=== PATIENT | male | born 1975 | race Caucasian/White ===

== ENCOUNTER 2025-09-07 11:43 | Emergency (ER) | payer OTHER, SELFPAY ==
--- NOTE | ~2025-09-07 | XR_ITS ---
Examination: XR chest 1V portable Clinical History: syncope Comparison: 02/14/2012 Technique: Portable AP Findings: Median sternotomy and CABG. Heart size normal. Lungs clear. No acute bony abnormality. IMPRESSION: 1. No acute cardiopulmonary findings given portable technique. Reviewed, dictated and finalized at location R. IONARY STEAM ENGINEER
[2025-09-07 11:50] VITALS: BP 124/74; PULSE 86; RESP 16; TEMP 36.1; O2SAT 99
--- NOTE | 2025-09-07 11:58 | ECG_ITS ---
Test Date: 2025-09-07 11:51:20 Measurements Intervals [place] Rate: 85 P: 39 MT: 172 QRS: 27 QRSD: 90 T: 57 QT: 369 QTc: 440 Interpretive Statements SINUS RHYTHM NONSPECIFIC T-WAVE ABNORMALITY BORDERLINE ECG No previous ECG available for comparison Electronically Signed On 09-07-2025 17:30:36 [employer] PROGRAMMER by Lam Barfield M.D.
--- NOTE | 2025-09-07 12:01 | PC.NURSE ---
Dr. Luan Schulz was spoken with by this RN at [facility]. Per the provider, preprocedure pt received 5 mg dexamethasone, 2 mg of versed, and a little bit of propofol and ketamine. Lidocaine was also used to numb the gums. 20 minutes into the procedure, the pts pulse dropped into the 40's. The provider said that the monitor was reading in the 80's but when he palpated the pulse, it was in the low 40's. After this, the provider gave 200 mcg of glycopyrrolate in small does to see if that would help with the pulse which it did not. Pt received 500 mL normal saline in procedure and another ~[address]
--- NOTE | 2025-09-07 12:15 | ED_ITS ---
HPI - General Adult General Chief complaint: Recheck/Abnormal Lab/Rx Stated complaint: BRADYCARDIA DURING DENTAL PROCEDURE Time Seen by Provider: 09/07/25 11:53 History of Present Illness HPI narrative: 50-year-old male presenting to the emergency department for evaluation for a a syncopal episode while he was getting his teeth extracted. Patient was getting teeth from both upper and lower extracted at a local dentist office when the patient had an episode of bradycardia down to the 40s. Upon arrival to the emergency department patient's heart rate is 86 patient's blood pressure is 124/74 and patient denies any complaints other than dental pain. Related Data Allergies Allergy/AdvReac Type Severity Reaction Status Date / Time Penicillins Allergy Unknown Unknown Verified 09/07/25 11:44 Review of Systems 2 Review of Systems: All systems reviewed & are unremarkable except as noted in HPI and below Exam 2 Narrative: APPEARANCE: Well appearing, no pain, no distress, well-nourished. HEAD: normocephalic, atraumatic. EYES: PERRLA/EOMI, conjunctivae clear. NOSE: Normal no drainage EARS:TMS clear with good light reflex. THROAT: Pharynx clear, no exudate. Mouth: Well clotting dental extractions, no active hemorrhage NECK: Supple. No adenopathy, no masses. RESPIRATORY: Airway patent, respirations nonlabored. Clear to auscultation bilaterally, no rales, rhonchi, wheezing. CARDIOVASCULAR: Regular rate and rhythm without murmurs rubs or gallops. ABDOMINAL: Soft, nontender, nondistended, normal bowel sounds MUSCULOSKELETAL: Moves all extremities. Strength/ROM intact, No edema, No calf tenderness. NEURO: Alert. Cranial nerves II through XII intact. Good gait. Good coordination SKIN: Warm, dry. Normal Color Course Vital Signs Vital signs: Vital Signs Temperature 97 F L 09/07/25 11:50 Pulse Rate 86 09/07/25 11:50 Respiratory Rate 16 09/07/25 11:50 Blood Pressure 124/74 09/07/25 11:50 Pulse Oximetry 99 09/07/25 11:50 Oxygen Delivery Room Air 09/07/25 11:50 Temperature 97 F L 09/07/25 11:50 Pulse Rate 82 09/07/25 13:54 Respiratory Rate 14 09/07/25 13:54 Blood Pressure 133/74 09/07/25 13:54 Pulse Oximetry 95 09/07/25 13:54 Oxygen Delivery Room Air 09/07/25 11:50 Medical Decision Making MDM Narrative Medical decision making narrative: 50-year-old male presents emergency department for evaluation for a episode of bradycardia. Patient is currently afebrile with no leukocytosis hemoglobin of 14.4. INR is 1.1. Normal kidney function. Chest x-ray shows no acute cardiopulmonary abnormality. EKG shows normal sinus rhythm. Patient was well- appearing at time of re-evaluation. Patient was able to ambulate without issue. Patient family updated the results of the workup and patient was strongly encouraged to continue have close follow-up with his dental surgeon. Patient and family are also educated reasons to return to the emergency department. All questions concerns were addressed. Differential Diagnosis Differential Diagnosis: Vasovagal episode, bradycardia, near syncope, hemorrhage, cardiac syncope Vital Signs Vital Signs: Vital Signs Temperature 97 F L 09/07/25 11:50 Pulse Rate 86 09/07/25 11:50 Respiratory Rate 16 09/07/25 11:50 Blood Pressure 124/74 09/07/25 11:50 Pulse Oximetry 99 09/07/25 11:50 Oxygen Delivery Room Air 09/07/25 11:50 Temperature 97 F L 09/07/25 11:50 Pulse Rate 82 09/07/25 13:54 Respiratory Rate 14 09/07/25 13:54 Blood Pressure 133/74 09/07/25 13:54 Pulse Oximetry 95 09/07/25 13:54 Oxygen Delivery Room Air 09/07/25 11:50 Lab Data Lab results reviewed: Yes I reviewed the patient's lab results. 09/07/25 12:27 09/07/25 12:27 Labs: Lab Results 09/07/25 Range/Units 12:27 WBC 8.0 (4.5-10.0) K/mm3 RBC 5.50 (4.6-6.20) M/mm3 Hgb 14.4 (14.0-18.0) g/dL Hct 45.8 (42.0-52.0) % MCV 83.3 (80-100) fl MCH 26.2 (26-34) pg MCHC 31.4 L (32-36) g/dl RDW 15.5 H (11.5-14.5) % Plt Count 255 (150-375) k/mm3 MPV 10.2 (7.4-10.4) fl Immature Gran % (Auto) 0.4 (0-0.5) % Neut % (Auto) 91.2 H (45.5-73.1) % Lymph % (Auto) 5.8 L (18.3-44.2) % [place] % (Auto) 1.9 L (2.6-8.5) % Eos % (Auto) 0.4 (0-4.4) % Baso % (Auto) 0.3 (0.2-1.2) % Lymph # (Auto) 0.46 L (0.9-3.2) K/mm3 [place] # (Auto) 0.2 (0.1-0.6) K/mm3 Eos # (Auto) 0.0 (0-0.3) K/mm3 Baso # (Auto) 0.0 (0.0-0.1) K/mm3 Abs Immat Gran (auto) 0.03 (0.00-0.031) K/mm3 Absolute Neuts (auto) 7.3 H (1.3-6.7) K/mm3 Absolute Nucleated RBC 0.000 (0.0-0.012) K/mm3 Nucleated RBC % 0.0 (0.0-0.2) % PT 14.3 (11.1-14.7) Seconds INR 1.1 APTT 31.7 (22.3-36.8) Seconds Sodium 138 (137-145) mmol/L Potassium 4.3 (3.4-5.0) mmol/L Chloride 106 (98-107) mmol/L Carbon Dioxide 22 (22-30) mmol/L Anion Gap 10 (4-12) mmol/L BUN 22 H (9-20) mg/dL Creatinine 0.66 L (0.7-1.3) mg/dL Estim Creat Clear Calc Not Reportable Estimated GFR > 60 (59 - ) Glucose 105 (65-110) mg/dL Calcium 8.7 (8.4-10.2) mg/dL Magnesium 2.3 (1.6-2.3) mg/dL Total Bilirubin 0.7 (0.2-1.3) mg/dL AST 28 (17-59) U/L ALT 21 (6-50) U/L Alkaline Phosphatase 96 (38-126) U/L Total Protein 7.1 (6.3-8.2) g/dL Albumin 4.5 (3.5-5.1) g/dL TSH (Reflex) 0.904 (0.465-4.68) uIU/mL Imaging Data Radiologist's impression: Impressions Chest X-Ray 09/07/25 12:36 IMPRESSION: 1. No acute cardiopulmonary findings given portable technique. Discharge Plan Discharge Clinical Impression: Bradycardia Patient Disposition: Home Condition: Stable Instructions: Antibiotic Form Additional Instructions: Have close follow-up with your or oral surgeon. Have close follow-up with your primary care physician. If you have any worsening symptoms please call or return to the emergency department. Patient Language: [place] Follow-up/Referrals: UNKNOWN,DOCTOR [Non-Staff]
[2025-09-07 12:40] LABS: Hematocrit 45.8 % (42.0-52.0); Hemoglobin 14.4 g/dL (14.0-18.0); Immature Granulocyte Percent A 0.4 % (0-0.5); Lymphocytes Absolute Auto 0.46 K/mm3 (0.9-3.2); Mean Corpuscular HGB Conc 31.4 g/dl (32-36); Mean Corpuscular Hemoglobin 26.2 pg (26-34); Mean Corpuscular Volume 83.3 fl (80-100); Nucleated Red Blood Cells Absolute Auto 0.000 K/mm3 (0.0-0.012); Nucleated Red Blood Cells Perc 0.0 % (0.0-0.2); Platelet Count Result 255 k/mm3 (150-375); Red Blood Count 5.50 M/mm3 (4.6-6.20); White Blood Count 8.0 K/mm3 (4.5-10.0)
[2025-09-07 12:54] LABS: INR 1.1; Partial Thromboplastin Time 31.7 Seconds (22.3-36.8); Prothrombin Time 14.3 Seconds (11.1-14.7)
[2025-09-07 12:58] VITALS: BP 122/72; PULSE 80; RESP 14; O2SAT 96
[2025-09-07 12:59] LABS: Alanine Aminotransferase 21 U/L (6-50); Albumin Level 4.5 g/dL (3.5-5.1); Alkaline Phosphatase 96 U/L (38-126); Anion Gap 10 mmol/L (4-12); Aspartate Amino Transferase 28 U/L (17-59); Bilirubin,Total 0.7 mg/dL (0.2-1.3); Blood Urea Nitrogen 22 mg/dL (9-20); Calcium 8.7 mg/dL (8.4-10.2); Carbon Dioxide 22 mmol/L (22-30); Chloride 106 mmol/L (98-107); Estimated Glomerular Filt Rate > 60; Glucose 105 mg/dL (65-110); Magnesium 2.3 mg/dL (1.6-2.3); Potassium 4.3 mmol/L (3.4-5.0); Sodium 138 mmol/L (137-145); Total Protein 7.1 g/dL (6.3-8.2)
[2025-09-07 13:23] LABS: Thyroid Stimulating Hormone Reflex 0.904 uIU/mL (0.465-4.68)
--- OUTSIDE RECORDS SUMMARY | 2025-09-07 13:29 | XMS_ITS | Clinical Summary ---
Author Organization [facility] Clinical [facility] Address [facility] [place] [address] Care Team Providers Care Crossbar Switch Adjuster Name Role Phone Rubens Zuniga MD Unavailable [phone] Bassem Pena MD Unavailable Sarah Junior INTERNATIONAL MARKETING MANAGER Unavailable Unavailable Carlos Pereira MD Unavailable Corina Pulido NP Unavailable [phone] Leelee Schaefer NP Primary Care Provider Allergies Active Allergy Reactions Criticality Noted Date Comments Penicillins Rash Medium 03/28/2018 As a child Has had cefazolin safely 02/2025 Medications senna-docusate (PERICOLACE) 8.6-50 mgIndications:cons tipation Take 2 tablets by mouth 2 (two) times a day 120 tablet 5 Active nicotine (NICODERM CQ) 14 mgIndications:Smok ing Cessation Place 1 patch on the skin daily for 24 hours 28 patch 1 5 Active ergocalciferol (VITAMIN D) 50,000 unit capsuleIndications :Vitamin D Deficiency Take 1 capsule (50,000 Units total) by mouth once a week 4 capsule 11 5 026 Active sacubitriL-valsart an (ENTRESTO) 24-26 mg tabletIndications: chronic heart failure Take 1 tablet by mouth 2 (two) times a day 60 tablet 5 Active ezetimibe (ZETIA) 10 mg tabletIndications: hyperlipidemia Take 1 tablet (10 mg total) by mouth daily 30 tablet 11 5 026 Active blood-glucose sensor (FreeStyle Honey 3 Plus Sensor) deviceIndications: Type 2 diabetes mellitus with hyperglycemia, with long-term current use of insulin (HCC) Change sensor every 15 days Dx: E11.65 6 each 3 5 Active insulin glargine 100 unit/mL (3 mL) pen for injectionIndicatio ns:Diabetes Mellitus Inject 14 Units under the skin nightly 15 mL 2 5 Active pen needle, diabetic (BD Ultra-Fine [place] Pen Needle) 32 gauge x 32 needle Use to inject 3-4x/day 300 each 3 5 Active atorvastatin (LIPITOR) 40 mg tabletIndications: coronary artery disease Take 1 tablet (40 mg total) by mouth nightly 90 tablet 3 5 Active amLODIPine (NORVASC) 5 mg tabletIndications: Primary hypertension Take 1 tablet (5 mg total) by mouth daily 90 tablet 3 5 Active gabapentin (NEURONTIN) 100 mg capsuleIndications :Other polyneuropathy Take 1 capsule (100 mg total) by mouth nightly 30 capsule 11 5 Active magnesium oxide (MAG-OX) 400 mg (241.3 mg elemental magnesium) tablet Take 1 tablet (400 mg total) by mouth 2 (two) times a day 5 Active metoprolol XL (TOPROL-XL) 25 mg extended release tablet Take 1 tablet (25 mg total) by mouth daily 5 Active tirzepatide (Mounjaro) 5 mg/0.5 mL pen injector injection Inject 0.5 mL (5 mg total) under the skin every 7 days 2 mL 5 5 Active empagliflozin (JARDIANCE) 25 mg tablet Take 1 tablet (25 mg total) by mouth daily 90 tablet [address] (PROTONIX) 40 mg EC tabletIndications: GI Bleed Take 1 tablet (40 mg total) by mouth 2 (two) times a day 180 tablet 3 5 Active tirzepatide (MOUNJARO) 7.5 mg/0.5 mL pen injector injectionIndicatio ns:Type 2 diabetes mellitus with hyperglycemia, with long-term current use of insulin (HCC),Class 1 obesity with serious comorbidity and body mass index (BMI) of 32.0 to 32.9 in adult, unspecified obesity type Inject 0.5 mL (7.5 mg total) under the skin every 7 days 2 mL 2 5 Active buPROPion SR (ZYBAN) 150 mg 12 hr tabletIndications: Cigarette smoker motivated to quit Take 1 tablet (150 mg total) by mouth 2 (two) times a day 60 tablet 3 5 025 Discontin ued(Thera py completed ) docusate sodium (COLACE) 100 mg capsuleIndications :constipation Take 1 capsule (100 mg total) by mouth 2 (two) times a day 60 capsule 11 5 025 Discontin ued(Thera py completed ) sod picosulf-mag ox-citric ac (Clenpiq) 10 mg-3.5 gram- 12 gram/175 mL solution Take as Directed 350 mL 5 025 Discontin ued(Thera py completed ) Active Problems Problem Noted Date Diagnosed Date Esophagitis 08/08/2025 Gastritis without bleeding 08/03/2025 Drug-induced constipation 05/03/2025 Assessment & Plan (09/03/2025 4:19 PM HEAD UP OPERATOR HELPER): Intermittent constipation despite Colace and Senna. Improvement with Mounjaro noted. - Discontinued Colace and Senna. - Initiated Florastor, two gummies in the morning and two in the evening. - Monitor bowel movement frequency and adjust Florastor dosage as needed. Assessment & Plan (05/03/2025 4:41 PM CDT): Constipation Constipation likely due to Ozempic use. Metamucil may not be beneficial. Emphasized physical activity and hydration. - Encourage increased physical activity and hydration. - Advise focus on green leafy vegetables. - Discontinue Metamucil. Vapes non-nicotine containing substance 05/03/20 25 Overview (09/03/2025): Stopped smoking when children were young Smoking Cessation Attempting to quit smoking with nicotine patch and gum. Bupropion prescribed but not started. - Resend bupropion prescription to pharmacy. Assessment & Plan (09/03/2025 4:20 PM HEAD UP OPERATOR HELPER): Nicotine dependence in remission. Reduced nicotine product consumption. - Discontinued Wellbutrin. - Continue nicotine lozenges and zero nicotine vape. - Encouraged reduction of nicotine use with the goal of cessation. Gastrointestinal hemorrhage with melena 03/20/20 Assessment & Plan (05/03/2025 2:15 PM CDT): No current symptoms Bleeding duodenal ulcer 03/16/2025 Assessment & Plan (05/03/2025 4:42 PM CDT): Peptic Ulcer Disease Bleeding ulcer likely due to NSAID use and stress. Discussed risks of NSAID use. - Consider stress management techniques. -Pantoprazole 40 mg Type 2 diabetes mellitus wit h hyperglycemia, with long-term current use of insulin 03/10/2025 Assessment & Plan (09/03/2025 4:18 PM HEAD UP OPERATOR HELPER): Managed with Mounjaro. Cravings suggest dose adjustment needed. Pipe Insulator Helper involved. - Increased Mounjaro dose after current supply is finished. - Informed branch maker of dose increase. - Reports significant constipation on Ozempic and taking 3 senna into docusate per day. Patient was changed to Mounjaro 5 mg weekly. - Continue Jardiance 125 mg, Glargine 10 units (fasting blood sugars less than 110 Lantus will be discontinued), and Mounjaro 5 mg/0.5 mL Lab Results Component Value Date HGBA1C 6.3 (A) 07/28/2025 HGBA1C 6.2 (H) 06/11/2025 HGBA1C 4.4 04/01/2025 HGBA1C 5.2 03/23/2025 HGBA1C 9.3 (H) 02/17/2025 Assessment & Plan (07/28/2025 11:26 AM CDT): Chronic problem, at goal. He is noting though significant constipation on Ozempic, taking 3 senna and 2 docusate/day and sometimes still difficult to have a BM. Will see if Mounjaro is better tolerated, change to 5 mg weekly. Increase Jardiance to 25 mg daily. Lower Lantus to 10 units daily. If fasting sugars persist <110 then can try stopping it altogether and let us know if any issues. We can consider metformin if needed in the future (tolerated fine before his GI bleed), but he is struggling with polypharmacy and medication confusion so will try to limit medications at this time. He'll also discuss with his GI and PCP. Try Mounjaro [address] of Ozempic to see if helps with constipation side effect. Increase Jardiance to 25 mg. Lower Lantus to 10 units. If fasting sugars stay low (<110) can leave this off altogether. Let me know how this works for you. Assessment & Plan (05/03/2025 4:41 PM CDT): Type 2 Diabetes Mellitus Blood glucose well-controlled with Ozempic and Lantus. Discussed Ozempic's potential to cause constipation. - Continue Ozempic and Lantus as prescribed. - Encourage regular physical activity and a balanced diet. Lab Results Component Value Date HGBA1C 4.4 04/01/2025 HGBA1C 5.2 03/23/2025 HGBA1C 9.3 (H) 02/17/2025 HGBA1C 9.8 (H) 07/23/2020 HGBA1C 7.0 (H) 09/24/2018 Jardiance 10 mg, Glargine 14 units, ozempic 0.5 mg, taper off lispro, metformin discontinued Assessment & Plan (03/23/2025 4:20 PM CDT): Chronic problem. A1c is spurious due to recent GI bleed requiring multiple units of pRBC. We discussed options including adding back metformin and starting a GLP1a like Ozempic that is also cardioprotective. However he was just discharged yesterday for the GI bleed and is still having some nausea, loose stools, etc. His sugars are reasonably stable right now on his current regimen with Jardiance and insulin so will continue same at this time. He can let us know how he's doing in about a month and we'll go from there. 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 He feels Dexcom is not always accurate and has multiple technical issues. Will try Honey, rx sent. Chronic heart failure 03/10/2025 Assessment & Plan (09/03/2025 6:56 AM HEAD UP OPERATOR HELPER): Asymptomatic, chronic condition. - Continue Entresto 24/26 mg Assessment & Plan (05/03/2025 2:14 PM CDT): Entresto 24/26 mg Bandemia 03/10/2025 Anemia, unspecified type 03/09/2025 Assessment & Plan (05/03/2025 2:11 PM CDT): Lab Results Component Value Date WBC 6.98 04/25/2025 HGB 13.6 04/25/2025 HCT 44.8 04/25/2025 MCV 89.2 04/25/2025 LABPLAT 289 04/25/2025 S/P CABG x 4 03/09/2025 Melena 03/09/2025 Pneumothorax 02/24/2025 Coronary artery disease invo lving coronary bypass graft of [place] heart with angina pectoris 02/19/2025 Assessment & Plan (05/03/2025 2:11 PM CDT): Entresto 24/26 mg Chest pain 02/17/2025 Hypertension 03/28/2018 Assessment & Plan (09/03/2025 4:20 PM HEAD UP OPERATOR HELPER): Well-controlled with amlodipine. - Continue current antihypertensive regimen with amlodipine. -Continue amlodipine 5 mg. BP Readings from Last 3 Encounters: 08/03/25 120/81 07/28/25 122/82 06/29/25 122/76 Assessment & Plan (07/28/2025 11:23 AM CDT): Chronic problem, Controlled on Entresto, amlodipine. No changes. Assessment & Plan (05/03/2025 4:42 PM CDT): Hypertension Blood pressure trending upward post-hospitalization. Amlodipine to be restarted, losartan held due to potential interaction with Entresto. - Restart amlodipine. - Hold off on losartan due to potential interactions with Entresto. - Monitor blood pressure regularly. BP Readings from Last 3 Encounters: 05/03/25 136/91 04/25/25 130/77 04/22/25 138/81 Restarted amlodipine 5 mg Assessment & Plan (03/23/2025 3:28 PM CDT): Chronic problem, Controlled on carvedilol, furosemide, spironolactone. No changes. Nephrolithiasis 03/28/2018 Class 1 obesity with serious comorbidity and body mass index (BMI) of 32.0 to 32.9 in adult 03/28/2018 Assessment & Plan (09/03/2025 4:19 PM HEAD UP OPERATOR HELPER): Management includes Mounjaro and physical activity. Goal weight 175 pounds. - Increased Mounjaro dose to aid in weight loss. - Continue regular physical activity, aiming for 150 minutes per week. - Monitor weight and adjust lifestyle interventions as needed. Wt Readings from Last 3 Encounters: 09/03/25 94.3 kg (208 lb) 08/03/25 90.7 kg (200 lb) 07/28/25 94.7 kg (208 lb 12.8 oz) BMI Follow-up includes: education provided. Assessment & Plan (05/03/2025 2:05 PM CDT): Wt Readings from Last 3 Encounters: 05/03/25 99.6 kg (219 lb 9.6 oz) 04/25/25 97.5 kg (215 lb) 04/22/25 99.8 kg (220 lb) BMI Follow-up includes: education provided. Followed by collar tacker Peripheral neuropathy 03/28/2018 Assessment & Plan (05/03/2025 4:41 PM CDT): Diabetic Neuropathy Intermittent numbness and tingling likely due to diabetic neuropathy. Gabapentin considered for symptom management. - Start gabapentin 100 mg at bedtime. - Monitor for side effects such as drowsiness and adjust dosage as needed. -Feet more than hands Hyperlipidemia 11/27/2017 Assessment & Plan (09/03/2025 4:20 PM HEAD UP OPERATOR HELPER): Managed with atorvastatin. - Continue atorvastatin as prescribed. Assessment & Plan (07/28/2025 11:24 AM CDT): Chronic problem. On statin therapy, no changes. Assessment & Plan (05/03/2025 4:42 PM CDT): Hyperlipidemia On atorvastatin 40 mg for management. Prescription refill issue unresolved. [place]-3 supplementation deferred. - Order cholesterol panel. Assessment & Plan (03/23/2025 3:35 PM CDT): Chronic problem. On statin therapy, no changes. Zetia was added in recent hospital stay. Resolved Problems Problem Noted Date Diagnosed Date Resolved Date Screening for colon cancer 03/16/2025 0 05/03/2025 Screening for colon cancer 03/16/2025 1 11/03/2024 Lipid disorder 03/28/2018 03/16/2025 Lower back pain 03/28/2018 03/16/2025 Backache 11/27/2017 03/16/2025 Overweight 11/27/2017 03/16/2025 Encounters Date Type Department Care Team Description 09/03/20 3:00 PM HEAD UP OPERATOR HELPER Office Visit [facility] [address] [place] [address] Leelee Schaefer NP Situational depression (Primary Dx); Primary hypertension; Type 2 diabetes mellitus with hyperglycemia, with long-term current use of insulin (HCC); Mixed hyperlipidemia; Chronic heart failure, unspecified heart failure type (HCC); Vapes non-nicotine containing substance; Immunization due; Drug-induced constipation; Class 1 obesity with serious comorbidity and body mass index (BMI) of 32.0 to 32.9 in adult, unspecified obesity type 08/08/20 25 Results Follow-Up [facility] at [address] [place] [address] Shila Metzger MD Surgical pathology 08/03/20 9:03 AM CDT Anesthesia Event GI Lab [address] [place] [address] Emily Orozco MD PhD Tere Lazar MD PhD 08/03/20 9:00 AM CDT - 08/03/20 9:30 AM CDT Surgery GI Lab [address] [place] [address] Shila Metzger MD ESOPHAGOGASTRODUODENOSCOPY BIOPSY 08/03/20 7:31 AM CDT - 08/03/20 10:53 AM CDT Hospital Encounter GI Lab [address] [place] [address] Shila Metzger MD Abiodun, Olufemi Joseph, MD Screening for colon cancer; Bleeding duodenal ulcer Discharge Disposition: Discharge to home or self care 07/28/20 9:15 AM CDT Office Visit [facility] [address] [address] Ailyn Graham PA Type 2 diabetes mellitus with hyperglycemia, with long-term current use of insulin (HCC) (Primary Dx); Primary hypertension; Mixed hyperlipidemia 07/26/20 Telephone [facility] at [address] [address] Shila Metzger MD EGD 07/26/20 Telephone [facility] at [address] [address] Shila Metzger MD 07/23/20 1:00 PM CDT Office Visit [address] [id number] Postsurgical aortocoronary bypass status (Primary Dx) 07/21/20 1:00 PM CDT Office Visit [address] [phone] Status post coronary artery bypass graft (Primary Dx) 07/19/20 1:00 PM CDT Office Visit [facility] [address] [place] [address] Postsurgical aortocoronary bypass status (Primary Dx) 07/16/20 1:00 PM CDT Office Visit [address] [address] S/P CABG (coronary artery bypass graft) (Primary Dx) 07/14/20 1:00 PM CDT Office Visit [address] [address] Postsurgical aortocoronary bypass status (Primary Dx) 07/12/20 1:00 PM CDT Office Visit [address] [address] S/P CABG (coronary artery bypass graft) (Primary Dx) 07/09/20 1:00 PM CDT Office Visit [address] [address] Postsurgical aortocoronary bypass status (Primary Dx) 07/07/20 1:00 PM CDT Office Visit [address] [address] Postsurgical aortocoronary bypass status (Primary Dx) 07/05/20 1:00 PM CDT Office Visit [address] [address] Postsurgical aortocoronary bypass status (Primary Dx) 07/02/20 1:00 PM CDT Office Visit [address] [address] Postsurgical aortocoronary bypass status (Primary Dx) 06/30/20 1:00 PM CDT Office Visit [address] [address] Postsurgical aortocoronary bypass status (Primary Dx) 06/30/20 Telephone [facility] at [address] [place] [address] Shila Metzger MD 06/29/20 11:30 AM CDT Office Visit [facility] [address] [place] [address] [address] [place] [address] Corina Pulido, ALFREDO S/P CABG x 4 (Primary Dx) 06/28/20 1:00 PM CDT Office Visit Cardiac [address] [address] Postsurgical aortocoronary bypass status (Primary Dx) 06/25/20 1:00 PM CDT Office Visit Cardiac [address] [address] Postsurgical aortocoronary bypass status (Primary Dx) 06/23/20 1:00 PM CDT Office Visit [address] [address] Postsurgical aortocoronary bypass status (Primary Dx) 06/21/20 1:00 PM CDT Office Visit [address] [address] Postsurgical aortocoronary bypass status (Primary Dx) 06/18/20 1:00 PM CDT Office Visit [address] [address] Postsurgical aortocoronary bypass status (Primary Dx) 06/16/20 1:00 PM CDT Office Visit [address] [address] Postsurgical aortocoronary bypass status (Primary Dx) 06/11/20 1:00 PM CDT Office Visit [address] [address] Postsurgical aortocoronary bypass status (Primary Dx) 06/11/20 12:00 PM CDT Lab [address] [address] 06/09/20 1:00 PM CDT Office Visit [address] [address] S/P CABG (coronary artery bypass graft) (Primary Dx) 06/07/20 1:00 PM CDT Office Visit [address] [address] Postsurgical aortocoronary bypass status (Primary Dx) from Last 3 Months Immunizations Immunization Administration Dates Next Due Hep B Vaccine 09/03/2025,05/05/2025 Influenza, Unspecified 09/03/2025(Deferred: Ankita ent Refused) Surgical History Surgery Date Site/Laterality Comments CARDIAC CATHETERIZATION 02/18/2025 N/A Procedure: LEFT HEART CATHETERIZATION WITH CORONARY ANGIOGRAPHY AND WITH OR WITHOUT LEFT VENTRICULOGRAM 43014; Surgeon: Bassem Pena MD; Location: [facility]AC [facility]; Service: Cardiovascular; Laterality: N/A; Medical devices from this surgery are in the Medical Devices section. CORONARY ARTERY BYPASS GRAFT UPPER GASTROINTESTINAL ENDOSCOPY 03/10/2025 ESOPHAGOGASTRODUODENOSCOPY 03/19/2025 Medical History Medical History Date Comments Hypertension Coronary artery disease Hyperlipidemia Type 2 diabetes mellitus Depression Anxiety Hemorrhoids GERD (gastroesophageal reflux disease) Duodenal ulcer Hiatal hernia First degree heart block Urolithiasis CHF (congestive heart failure) (HCC) Anemia Melena Muscle spasm neck and back Myocardial infarction (HCC) History of transfusion Family History Medical History Relation Name Comments Diabetes Father Family history of diabetes mellitus - (Added by TW Conv) Hypertension Father Family history of hypertension - (Added by TW Conv) Pancreatic cancer Father Family his tory of pancreatic cancer - (Added by TW Conv) Diabetes Mother Family history of diabetes mellitus - (Added by TW Conv) Hypertension Mother Family history of hypertension - (Added by TW Conv) Sleep apnea Mother Obstructive sle ep apnea, adult - (Added by TW Conv) Relation Name Status Comments Father Mother Social History Tobacco Use Types Packs/Day Years Used Date Smoking Tobacco: Every Day Vaping Smokeless Tobacco: Never Tobacco Cessation:Ready to Q uit: Not Asked; Counseling Given: Not Answered Alcohol Use Standard Drinks/Week Comments Yes 1 (1 standard drink = 0.6 oz pur e alcohol) OASIS D0700: Social Isolation Answer Da te Recorded Frequency of experiencing loneliness or isolatio n Sometimes 03/31/2025 OASIS A1250: Transportation Answer Date Recorded Lack of Transportation (Medical) No 03/31/2025 Lack of Transportation (Non-Medical) No 03/31/2025 Patient Unable or Declines to Respond No 03/31/2025 OASIS B1300: Health Literacy Answer [place] e Recorded Frequency of needing help to read materials from doctor or pharmacy Never 03/31/2025 AHC Utilities Answer Date Recorded In the past 12 months has th e electric, gas, oil, or water company threatened to shut off services in your home? No 03/15/2025 Social Connection and Isolation Panel Answer Date Recorded In a typical week, how many times do you talk on the phone with family, friends, or neighbors? More than three times a week 03/15/2025 How often do you get togethe r with friends or relatives? Once a week 03/15/2025 How often do you attend chur ch or religion services? Never 03/15/2025 Do you belong to any clubs o r organizations such as quaker groups, unions, fraternal or athletic groups, or school groups? No 03/15/2025 How often do you attend meet ings of the clubs or organizations you belong to? Never 03/15/2025 Are you , , di vorced, , never , or living with a partner? Never 03/15/2025 Overall Financial Resource Strain (CARDIA) Answe r Date Recorded How hard is it for you to pa y for the very basics like food, housing, medical care, and heating? Not hard at all 03/15/2025 PHQ-2 Answer Date Recorded PHQ-2 Total Score (If total score is 3 or more points, staff should administer the PHQ-9) 0 09/03/2025 Hunger Vital Sign Answer Date Recorded Within the past 12 months, y ou worried that your food would run out before you got the money to buy more. Never true 03/15/20 25 Within the past 12 months, t he food you bought just didn't last and you didn't have money to get more. Never true 03/15/2025 PRAPARE - Transportation Answer Date Re corded In the past 12 months, has l ack of transportation kept you from medical appointments or from getting medications? No 11/2024 In the past 12 months, has l ack of transportation kept you from meetings, work, or from getting things needed for daily living? No 03/15/2025 PHQ-9 Answer Date Recorded PHQ-9 Total Score 8 05/03/2025 Housing Stability Vital Sign Answer Le[place] e Recorded In the last 12 months, was t here a time when you were not able to pay the mortgage or rent on time? No 03/15/2025 In the past 12 months, how m any times have you moved where you were living? 0 03/15/2025 At any time in the past [address] [facility], were you homeless or living in a care home (including now)? No 03/15/2025 AUDIT-C Answer Date Recorded Q1: How often do you have a drink containing alc ohol? 2-4 times a month 08/03/2025 Q2: How many drinks containi ng alcohol do you have on a typical day when you are drinking? 1 or 2 08/03/2025 Q3: How often do you have si x or more drinks on one occasion? Less than monthly 08/03/2025 Personal Safety Answer Date Recorded Have you ever been in or are you currently in a harmful physical or emotional relationship or is someone making you feel afraid or unsafe? Denies 08/03/2025 Sex and Gender Information Value Date Recorded Sex Assigned at Not on file Legal Sex Male 12:15 AM HEAD UP OPERATOR HELPER Gender Identity Not on file Sexual Orientation Not on file Last Filed Vital Signs Vital Sign Reading Time Taken Comments Blood Pressure 117/78 09/03/2025 3:02 PM HEAD UP OPERATOR HELPER Pulse 64 09/03/2025 3:02 PM HEAD UP OPERATOR HELPER Temperature 36.8 C (98.3 F) 08/03/2025 9:40 AM CDT Respiratory Rate 17 09/03/2025 3:02 PM HEAD UP OPERATOR HELPER Oxygen Saturation 98% 08/03/2025 10:10 AM CDT Inhaled Oxygen Concentration - - Weight 94.3 kg (208 lb) 09/03/2025 3:02 PM HEAD UP OPERATOR HELPER Height 172.7 cm (5' 7.99) 09/03/2025 3:02 PM CS T Body Mass Index 31.63 09/03/2025 3:02 PM HEAD UP OPERATOR HELPER Plan of Treatment Health Maintenance Due Date Last Done Comments DTaP/Tdap/Td Vaccine (1 - Tdap) 1984 Pneumococcal vaccine <65 (1 of 2 - PCV) 1992 Zoster Vaccine (1 of 2) 2023 Hemoglobin A1C 01/26/2026 07/28/2025, 08/2 06/2025, 04/01/2025, Additional history exists Foot Exam 03/23/2026 03/23/2025 Dilated Eye Exam 04/02/2026 04/02/2025 Influenza Vaccine (#1) 2026 Postp oned from 06/14/2025 (Patient declined, but will receive in the future) Albumin Creatinine Ratio, Urine 05/03/2026 05/03/2025, 03/21/2025 Regular Well Visit/Exam 18-64 05/03/2026 05/03/2025, 07/18/2020 Lipid Panel 06/11/2026 06/11/2025, 04/14, 04/01/2025, Additional history exists eGFR 06/11/2026 06/11/2025, 0710/2024, 04/25/2025, Additional history exists Covid-19 Vaccine ( season) 2026 03/26/2021, 03/05/2021 Postponed from 06/14/2025 (Patient declined, but will receive in the future) Depression Screening 09/03/2026 09/03/2025, 05/03/2025, 05/03/2025, Additional history exists Prostate Cancer Screening-PSA 05/03/2027 05/03/2025 Colon Cancer Screening-Colonoscopy 03/22/2035 03/22/2025 Hepatitis C Screening Completed 05/03/2025 Hepatitis B Screening Completed 09/03/2025 , 05/05/2025, 05/03/2025 Medical Devices Implanted Type Area Data Integration Architect Device Identifier Shelf Expiration Date Model / Serial / Lot [employer] Graft Straight Thoracic Collagen Coated Double [employer] [place] [id number] Woven [employer] [id number] - [id number] - [id number] Implanted:Qty: 1 on 02/23/2025 by Kel Reyes MD at Graft N/A: Aorta [employer] [id number] 04/12/2029 [id number] / [id number] [employer] Plate Bone Low Profile 4 Hole Box Sternum Ti 115.103.04 - [id number] Implanted:Qty: 1 on 02/23/2025 by Kel Reyes MD at Plate N/A: Sternum [employer] 115.103.0 4 / / [employer] Plate Bone Low Profile 6 Hole H Shape Sternum Ti 115.102.06 - [id number] Implanted:Qty: 1 on 02/23/2025 by Kel Reyes MD at Plate N/A: Sternum [employer] 115.102.0 6 / / [employer] Plate Bone Low Profile 6 Hole O Shape Sternum Ti 115.104.06 - [id number] Implanted:Qty: 1 on 02/23/2025 by Kel Reyes MD at Plate N/A: Sternum [employer] 115.104.0 6 / / [employer] Screw Bone Slf Drl Full Thread Locking 3.5x18mm Ti 100.035.18 - [id number] Implanted:Qty: 16 on 02/23/2025 by Kel Reyes MD at Screw N/A: Sternum [employer] 100.035.1 8 / / [employer] Angio-Seal Vip 6fr Closere Device [id number] - [id number] Implanted:Qty: 1 on 02/18/2025 by [id number] / / [employer] Kit Ventricular Assist Device Pump Percutaneous Impella 5.5 Smartassist [id number] - [id number] - [id number] Implanted:Qty: 1 on 02/23/2025 by Kel Reyes MD at N/A: Heart [employer] [id number] 06/13/2026 [id number] / 00 / [id number] Procedures Procedure Name Priority Date/Time Associated Diagnosis Comments SURGICAL PATHOLOGY Routine 08/03/2025 1:21 PM CDT Screening for colon cancer Bleeding duodenal ulcer ESOPHAGOGASTRODUODENOSCOPY BIOPSY 08/03/2025 9:04 AM CDT Screening for colon cancer Bleeding duodenal ulcer EGD 08/03/2025 9:00 AM CDT POCT GLUCOSE DEVICE Routine 08/03/2025 8:17 AM CDT POCT GLUCOSE Routine 07/28/2025 9:10 AM CDT Type 2 diabetes mellitus with hyperglycemia, with long-term current use of insulin (HCC) POCT HEMOGLOBIN A1C Routine 07/28/2025 9:10 AM CDT Type 2 diabetes mellitus with hyperglycemia, with long-term current use of insulin (HCC) DIFFERENTIAL AUTO Routine 06/11/2025 12:41 PM CDT CBC WITH AUTO DIFFERENTIAL Routine 06/11 12:41 PM CDT EGFR Routine 06/11/2025 12:40 PM CDT LIPID PANEL Routine 06/11/2025 12:40 PM CDT HEMOGLOBIN A1C Routine 06/11/2025 12:40 PM CDT COMPREHENSIVE METABOLIC PANEL Routine 12:40 PM CDT PSA SCREEN Routine 05/03/2025 4:08 PM CDT Annual physical exam Screening for prostate cancer HEPATITIS C ANTIBODY Routine 05/03/2025 3:17 PM CDT Encounter for HCV screening test for low risk patient ALBUMIN CREATININE RATIO, URINE Routine 05/03/2025 3:17 PM CDT Type 2 diabetes mellitus with hyperglycemia, with long-term current use of insulin (HCC) Screening for diabetes mellitus HM DIABETES EYE EXAM Routine 04/02/2025 7:35 AM CDT COLONOSCOPY 03/22/2025 9:42 AM CDT from Last 3 Months or Most Recently Relevant to Health Maintenance Results * Surgical pathology (08/03/2025 1:21 PM CDT) Tissue (Gastric/Stomach biopsy) 08/03/2025 9:25 AM CDT Tissue specimen (specimen) (Esophageal biopsy) 08/03/2025 9:29 AM CDT Narrative PATHOLOGY - 08/04/2025 3:48 PM CDT EPIC results best viewed via link to PDF Department of Pathology [address] [place] [id number] Note to Patients: This report may contain a detailed description of human tissue sent by a health care provider to the laboratory for pathologic evaluation. The content of this report is essential for diagnosis and may provide important critical findings. This information may be unfamiliar to patients to review without a medical professional present. It is advised that the patient review this report in the presence of a health care provider who can answer questions and explain the details. Final Report Patient Name: MIKE STODDARD III Address: [address] [place] [address] Gender: M : 1975 (Age: 50) Service: Gastro Location: GI Lab Hospital #: [id number] Patient Type: [facility] Taken: 08/03/2025 Received: 08/03/2025 Accessioned: 08/03/2025 Reported: 08/04/2025 Physician(s):Shila Schaefer NP Diagnosis: A. Stomach, gastric biopsy- Benign fundic and antral type gastric mucosa demonstrating changes consistent with iron pill gastritis/gastropathy Helicobacter organisms not identified on routine H&E stained slides B. Esophagus, abnormal lower mucosa, endoscopic biopsy- Benign squamoglandular mucosa demonstrating minimal chronic inflammation and reactive change Negative for intestinal metaplasia/Ruiz's mucosa Hortencia Pires M.D. Report Electronically Reviewed and Signed Out By Hortencia Pires M.D. 08/04/2025 15:48:44 Specimen(s) Received: A: Gastric bbiopsy rule out H. pylori B: Esophagus abnormal lower esophageal mucosa biopsy Microscopic Description: Microscopic examination corroborates the diagnosis. Clinical History: Screening for colon cancer, bleeding duodenal ulcer Gross Description: The specimen is submitted in two formalin containers labeled MIKE STODDARD. A. The first container is labeled gastric biopsy. It is 4 fragments of toscano tissue measuring 1 mm. All in A. B. The second container is labeled esophagus abnormal lower esophageal mucosa. It is 1 fragment of toscano tissue measuring 1 mm. All in B. T.A. Xin Rangel.Virgilio./Hortencia Pires M.D. REPORT IMAGES AND SCANNED DOCUMENTS, IF INCLUDED, ONLY VIEWABLE IN PDF VERSION OF REPORT The performance characteristics of some immunohistochemical stains, fluorescence in-situ hybridization tests and immunophenotyping by flow cytometry cited in this report (if any) were determined by the Surgical Pathology Department at as part of an ongoing training and quality manager program and in compliance with federally mandated regulations drawn from the Clinical Laboratory Improvement Act of 1988 (CLIA '88). Some of these tests rely on the use of analyte specific reagents and are subject to specific labeling requirements by the US Food and Drug Administration. Such diagnostic tests may only be performed in a facility that is certified by the Department of Health and Human Services as a high complexity laboratory under CLIA '88. The FDA has determined that such clearance or approval is not necessary. This test is used for clinical purposes. It should not be regarded as investigational or for research. Nevertheless, federal rules concerning the medical use of analyte specific reagents require that the following disclaimer be attached to the report: This test was developed and its performance characteristics determined by the Surgical Pathology Department [facility]. It has not been cleared or approved by the U. S. Food and Drug Administration. Note for decalcified specimens: This assay has not been validated on decalcified tissues. Results should be interpreted with caution given the possibility of false negativity on decalcified specimens Shial Metzger MD LAB PATHOLOGY ORDERABLES Fi nal Result Performing Organization Address City/State/[facility] Co de Phone Number PATHOLOGY [address] [place] [address] * EGD (08/03/2025 9:00 AM CDT) Anatomical Region Laterality Modality Other Narrative Procedure Note Shila Metzger MD - 08/03/2025 9:00 AM CDT - Endoscopy Lab Patient Name: Mike Stoddard Procedure Date: 08/03/2025 9:00 AM Date of : 1975 Admit Type: Outpatient Age: 50 Gender: Male Note Status: Finalized Attending MD: Shila Metzger M.D., Procedure Date: 08/03/2025 Procedure: Upper GI endoscopy Indications: Follow-up of duodenal ulcer Providers: Shila Metzger M.D., KELLI Dhillon (Anesthesia Staff), Argelia Henley RN, Kiara Gallo RN Referring MD: Ankit Dang Medicines: Monitored Anesthesia Care Complications: No immediate complications. Estimated Blood Loss: Estimated blood loss was minimal. Procedure: Pre-Anesthesia Assessment: - Prior to the procedure, a History and Physicalwas performed, and patient medications and allergieswere reviewed. The patient's tolerance of previous anesthesia was also reviewed. The risks andbenefits of the procedure and the sedation options and risks were discussed with the patient. All questions were answered, and informed consent was obtained. Prior Anticoagulants: The patient has taken noanticoagulant or antiplatelet agents. ASA Grade Assessment: III -A patient with severe systemic disease. Afterreviewing the risks and benefits, the patient was deemed in satisfactory condition to undergo the procedure. - Prior to the procedure, a History and Physicalwas performed, and patient medications, allergies and sensitivities were reviewed. The patient'stolerance of previous anesthesia was reviewed. - The risks and benefits of the procedure and the sedation options and risks were discussed with the patient. All questions were answered and informed consent was obtained. After obtaining informed consent, the endoscope was passed under direct vision. Throughout theprocedure, the patient's blood pressure, pulse, and oxygen saturations were monitored continuously. The scopewas passed under direct vision. The Endoscope was introduced through the mouth, and advanced to the second part of duodenum. The upper GI endoscopy was accomplished without difficulty. The patienttolerated the procedure well. Findings: The examined duodenum was normal. Food (residue) was found in the gastric fundus and in the gastricbody. Lavage of the area was performed, resulting in clearance with fair visualization. Patchy moderate inflammation characterized by congestion (edema), erosions, erythema, granularity and nodularity was found in theentire examined stomach. Biopsies were taken with a cold forceps forhistology. Biopsies were taken with a cold forceps for Helicobacter pyloritesting. The gastroesophageal flap valve was visualized endoscopically and classified as Hill Grade II (fold present, opens with respiration). A small hiatal hernia was present. The Z-line was regular. Localized mucosal change characterized by discoloration, glandular appearence was found in the lower third of the esophagus. Biopsieswere taken with a cold forceps for histology. With sampling this area appeared removed. The exam of the esophagus was otherwise normal. Impression: - Normal examined duodenum. - Food (residue) in the stomach. - Gastritis, characterized by congestion (edema), erosions, erythema, granularity and nodularity. Biopsied. - Gastroesophageal flap valve classified as HillGrade II (fold present, opens with respiration). - Small hiatal hernia. - Z-line regular. - Discolored, glandular appearing mucosa in thelower esophagus. Removed with sampling. Recommendation: - Patient has a contact number available for emergencies. The signs and symptoms of potential delayed complications were discussed with thepatient. Return to normal activities tomorrow. Written discharge instructions were provided to thepatient. - Resume previous diet. - Continue present medications. - Await pathology results. - Avoid nonsteroidal anti-inflammatory drugs(NSAIDS) - examples of this category of medications to avoid include ibuprofen, advil, aleve, naproxen Procedure Code(s): --- Professional --- 66244, Esophagogastroduodenoscopy, flexible, transoral; with biopsy, single or multiple Diagnosis Code(s): --- Professional --- K29.70, Gastritis, unspecified, without bleeding K44.9, Diaphragmatic hernia without obstruction or gangrene K22.89, Other specified disease of esophagus K26.9, Duodenal ulcer, unspecified as acute or chronic, without hemorrhage or perforation CPT copyright 2022 [employer]. All rights reserved. The codes documented in this report are preliminary and upon outpatient coder reviewmay be revised to meet current compliance requirements. Dr. Shila Metzger MD [facility] Shila Metzger M.D. 08/03/2025 9:42:16 AM Number of Addenda: 0 Note Initiated On: 08/03/2025 9:00 AM Shila Metzger MD ENDOSCOPY PROCEDURES Edited Result - Final * POCT glucose (08/03/2025 8:17 AM CDT) Glucose, POC 74 70 - 199 mg/dL Blood 08/03/2025 8:17 AM CDT 08/03/2025 8:17 AM CDT Chivo Rojas MD LAB POCT ORDERABLES - DEVICE Final Result Performing Organization Address City/State/[facility] Co mi Phone Number [facility] [id number] Department [place] [address] * (ABNORMAL) POCT hemoglobin A1c (07/28/2025 9:10 AM CDT) Hemoglobin A1C, POC 6.3(A) 4.0 - 5.6 % Capillary blood 07/28/2025 9 :10 AM CDT Ailyn SCHRADER POINT OF CARE TEST ORDE RABLES Final Result * (ABNORMAL) POCT glucose (07/28/2025 9:10 AM CDT) Pathologist [facility] Glucose Blood, POC 111 Normal Fasting 70 - 100, Random <200 mg/dL Comment:PPG 1 Hrs Blood 07/28/2025 9:10 AM CDT Ailyn SCHRADER POINT OF CARE TEST ORDLore DONATO Final Result * (ABNORMAL) Differential, auto (06/11/2025 12:41 PM CDT) [facility] Neutrophil abs 4.56 1.50 - 6.50 K/cumm Imm gran abs 0.02 0.00 - 0.10 K/cumm [facility] Lymphocyte abs 1.31 0.80 - 3.30 K/cumm [facility] Monocyte abs 0.38 0.20 - 0.80 K/cumm [facility] Eosinophil abs 0.59(H) 0.00 - 0.50 K/cumm [facility] Basophil abs 0.05 0.00 - 0.10 K/cumm [facility] Neutrophil pct 66.0 % [facility] Comment: Interpretive Data Percent cell count reference ranges are not reported, since discordance with absolute values may lead to misinterpretation of CBC data. Current Interpretive Data was last revised on 2018. Imm gran pct 0.3 % [facility] Comment: Interpretive Data Percent cell count reference ranges are not reported, since discordance with absolute values may lead to misinterpretation of CBC data. Current Interpretive Data was last revised on 2018. Lymphocyte pct 19.0 % [facility] Comment: Interpretive Data Percent cell count reference ranges are not reported, since discordance with absolute values may lead to misinterpretation of CBC data. Current Interpretive Data was last revised on 2018. Monocyte pct 5.5 % [facility] Comment: Interpretive Data Percent cell count reference ranges are not reported, since discordance with absolute values may lead to misinterpretation of CBC data. Current Interpretive Data was last revised on 2018. Eosinophil pct 8.5 % [facility] Comment: Interpretive Data Percent cell count reference ranges are not reported, since discordance with absolute values may lead to misinterpretation of CBC data. Current Interpretive Data was last revised on 2018. Basophil pct 0.7 % [facility] Comment: Interpretive Data Percent cell count reference ranges are not reported, since discordance with absolute values may lead to misinterpretation of CBC data. Current Interpretive Data was last revised on 2018. Blood 06/11/2025 12:4 1 PM CDT 06/11/2025 12:41 PM CDT Carlos Pereira MD LAB BLOOD ORDERABLES F inal Result Performing Organization Address [facility]/ZIP Co de Phone Number [facility] [address] [place] [address] * (ABNORMAL) CBC with auto differential (06/11/2025 12:41 PM CDT) WBC 6.91 3.80 - 9.90 K/cumm Hgb 16.0 13.0 - 17.5 g/dL [facility] Hct 52.0(H) 38.9 - 50.3 % [facility] Plt 267 150 - 400 K/cumm [facility] MPV 10.2 9.1 - 12.3 fL [facility] RBC 6.24(H) 4.30 - 5.80 M/cumm [facility] MCV 83.3 81.3 - 96.4 fL [facility] MCH 25.6(L) 27.1 - 33.3 pg [facility] MCHC 30.8(L) 32.3 - 35.7 g/dL [facility] RDW CV 12.6 11.1 - 14.9 % [facility] RDW SD 38.0 35.7 - 48.1 fL [facility] NRBC abs 0.00 0.00 - 0.01 K/cumm [facility] Blood 06/11/2025 12:4 1 PM CDT 06/11/2025 12:41 PM CDT Carlos Pereira MD LAB BLOOD ORDERABLES F inal Result Performing Organization Address [facility]/ZIP Co de Phone Number [facility] [address] [place] [address] * eGFR (06/11/2025 12:40 PM CDT) eGFR >90 >=60 mL/min/1. 73 m2 Comment: Interpretive Data Reference Interval Normal >/= 90 mL/min/1.73m2 Mildly decreased* 60 - 89 mL/min/1.73m2 Mildly to moderately decreased 45 - 59 mL/min/1.73m2 Moderately to severely decreased 30 - 44 mL/min/1.73m2 Severely decreased 15 - 29 mL/min/1.73m2 Kidney Failure < 15 mL/min/1.73m2 *Relative to young adult level Estimated glomerular filtration rate is determined by the 2020 CKD-EPI equation recommended by the National Kidney Foundation (A Unifying Approach to GFR Estimation: Recommendations of the NKF-ASK Task Force on Reassessing the Inclusion of Race in Diagnosing Kidney Disease, JASN 2020). The CKD-EPI equation should not be used for patients with unstable renal function and has not been validated in children and those over 70. Current interpretive data was last reviewed 2021. Blood 06/11/2025 12:4 0 PM CDT 06/11/2025 12:40 PM CDT Carlos Pereira MD LAB BLOOD ORDERABLES F inal Result [facility] [address] Department [place] [address] * (ABNORMAL) Hemoglobin A1c (06/11/2025 12:40 PM CDT) Hgb A1C 6.2(H) 4.0 - 5.6 % Estimated Average Glucose 131 mg/dL [facility] Comment: The ADA recommends reporting an estimated Average Glucose (eAG) with all Hemoglobin A1c results using the equation derived from a study of 507 normal and diabetic adults. Minority populations were underrepresented and children were not included. (Diabetes Care 31:8160-2018, 2008). The eAG is not equivalent to a fasting glucose. Blood 06/11/2025 12:4 0 PM CDT 06/11/2025 12:40 PM CDT Jennathiago Nguyễn Pereira MD LAB BLOOD ORDERABLES F inal Result [facility] [address] Department [place] [address] * (ABNORMAL) Lipid panel (06/11/2025 12:40 PM CDT) Cholesterol 94 30 - 199 mg/dL Comment: Interpretive Data Ages < or = 19 years Acceptable: <170 mg/dL Borderline high: 170-199 mg/dL High: >or= 200 mg/dL Ages > or = 20 years Desirable: <200 mg/dL Borderline high: 200-239 mg/dL High: >or= 240 mg/dL Literature References: 1. Expert Panel on Integrated Guidelines for Cardiovascular Health and Risk Reduction in Children and Adolescents. Pediatrics 2011;128:S213 2. NCEP Expert Panel. Circulation 2004;110:227 Current Interpretive Data was last revised on 2018. Triglycerides 99 <=149 mg/dL [facility] Comment: Interpretive Data Ages < or = 9 years Acceptable: <75 mg/dL Borderline high: 75-99 mg/dL High: >or= 100 mg/dL Ages 10 to 20 years Acceptable: <90 mg/dL Borderline high: 90-129 mg/dL High: >or= 130 mg/dL Ages > or = 20 years Desirable: <150 mg/dL Borderline high: 150-199 mg/dL High: 200-499 mg/dL Very high: >or= 499 mg/dL Literature References: 1. Expert Panel on Integrated Guidelines for Cardiovascular Health and Risk Reduction in Children and Adolescents. Pediatrics 2011;128:S213 2. NCEP Expert Panel. Circulation 2004;110:227 Current Interpretive Data was last revised on 2018. HDL 32(L) >=40 mg/dL [facility] Comment: Interpretive Data Ages < or = 19 years Acceptable: >45 mg/dL Borderline low: 40-45 mg/dL Low: <40 mg/dL Ages > or = 20 years Desirable: >or= 60 mg/dL Low: <40 mg/dL Literature References: 1. Expert Panel on Integrated Guidelines for Cardiovascular Health and Risk Reduction in Children and Adolescents. Pediatrics 2011;128:S213 2. NCEP Expert Panel. Circulation 2004;110:227 Current Interpretive Data was last revised on 2018. LDL, calculated 43 <=129 mg/dL [facility] Comment: Interpretive Data Ages < or = 19 years Acceptable: <110 mg/dL Borderline high: 110-129 mg/dL High: >or= 130 mg/dL Ages > or = 20 years Optimal: <100 mg/dL Near optimal: 100-129 mg/dL Borderline high: 130-159 mg/dL High: >160 mg/dL Calculated using the Matteo LDL-C estimating equation. This equation was implemented on 2024. Prior to this date LDL-C was estimated using the Friedewald equation. Literature References: 1. Expert Panel on Integrated Guidelines for Cardiovascular Health and Risk Reduction in Children and Adolescents. Pediatrics 2011;128:S213 2. NCEP Expert Panel. Circulation 2004;110:227 3. Matteo Woo et al. SHAUN Cardiol. 2019February 11;5(5):540-548. doi: 10.1001/jamacardio.2020.0013 Current Interpretive Data was last revised on 2024. Non-HDL Cholesterol 62 mg/dL [facility] Comment: Interpretive Data Ages < or = 19 years Acceptable: <120 mg/dL Borderline high: 120-144 mg/dL High: >145 mg/dL Ages > or = 20 years When triglycerides are >200 mg/dL, Non-HDL cholesterol is a secondary target of therapy with treatment goals that are 30 mg/dL greater than the LDL cholesterol target. Literature References: 1. Expert Panel on Integrated Guidelines for Cardiovascular Health and Risk Reduction in Children and Adolescents. Pediatrics 2011;128:S213 2. NCEP Expert Panel. Circulation 2004;110:227 Current Interpretive Data was last revised on 2018. Chol/HDL ratio 3 [facility] Blood 06/11/2025 12:4 0 PM CDT 06/11/2025 12:40 PM CDT us Carlos Pereira MD LAB BLOOD ORDERABLES F inal Result [facility] [address] Department [place] [address] * (ABNORMAL) Comprehensive metabolic panel (06/11/2025 12:40 PM CDT) Sodium 141 135 - 145 mmol/L Potassium, pl 4.1 3.3 - 4.9 mmol/L [facility] Chloride 104 97 - 110 mmol/L [facility] CO2 24 22 - 32 mmol/L [facility] Anion gap 13 2 - 15 mmol/L [facility] BUN 14 6 - 25 mg/dL [facility] Creatinine 0.85 0.80 - 1.30 mg/dL [facility] Glucose 151 70 - 199 mg/dL [facility] Comment: Interpretive Data Fasting glucose >/= 126 mg/dl is diagnostic for diabetes. Fasting is defined as no caloric intake for at least 8 hours. Fasting glucose between 100 mg/dl to 125 mg/dl is diagnostic of prediabetes. In a patient with classic symptoms of hyperglycemia or hyperglycemic crisis, a random glucose >/= 200 mg/dl is diagnostic for diabetes. In the absence of unequivocal hyperglycemia, results should be confirmed by repeat testing. The classification and Diagnosis of Diabetes Diabetes Care 2021; 46: S19-S40. Current interpretive data was last revised 2022. Calcium 9.7 8.5 - 10.3 mg/dL [facility] Bilirubin, total 0.3 0.1 - 1.2 mg/dL [facility] Protein, pl 7.7 6.5 - 8.5 g/dL [facility] Albumin 4.6 3.5 - 5.0 g/dL [facility] Alk phos 132(H) 40 - 130 Units/L [facility] ALT 25 7 - 55 Units/L [facility] AST 19 10 - 50 Units/L [facility] Blood 06/11/2025 12:4 0 PM CDT 06/11/2025 12:40 PM CDT us Carlos Pereira MD LAB BLOOD ORDERABLES F inal Result [facility] [address] Department [place] [address] * PSA screen (05/03/2025 4:08 PM CDT) [facility] PSA-Total 0.33 <=3.90 ng/mL Comment: Interpretive Data AGE SEX REFERENCE INTERVAL 0 minutes-150 years Female None 0 minutes-49 years Male None 50-59 years Male 0-3.90 60-69 years Male 0-5.40 70-79 years Male 0-6.20 80-150 years Male 0-6.20 The Regi PSA Total assay procedure was used. Results from different manufacturers or methods may not be comparable. Serial testing should be performed using the same method. Current interpretive data last revised 22. Blood 05/03/2025 4:08 PM CDT 05/03/2025 4:08 PM CDT Leelee Schaefer NP LAB BLOOD ORDERABLES Final Resul t Performing Organization Address [facility] de Phone Number [facility] [address] [place] [address] * Hepatitis C antibody Blood (05/03/2025 3:17 PM CDT) [facility] Hep C Ab Nonreactive Nonreactive Comment: Interpretive Data Nonreactive: Antibodies to HCV not detected. Does NOT exclude the possibility of recent exposure to HCV. Equivocal: Equivocal for HCV antibodies. Supplemental molecular testing will be automatically performed to determine infection status in accordance with current CDC screening recommendations. Reactive: Positive for HCV antibodies. This may represent current or past HCV infection. Supplemental molecular testing will be automatically performed to determine current infection status in accordance with current CDC screening recommendations. Interpretive data was last revised on 2019. Blood 05/03/2025 3:17 PM CDT 05/03/2025 4:00 PM CDT Leelee Schaefer NP LAB MICROBIOLOGY - GENERAL ORDER RAMO Final Result Performing Organization Address [facility] Co de Phone Number DUANE SERNA [address] [place] [address] * Albumin Creatinine Ratio, Urine (05/03/2025 3:17 PM CDT) [facility] Albumin Ur <12.0 mg/L Comment: Interpretive Data No reference range established. Current interpretive data was last revised 2019. Creatinine Ur 67.3 mg/dL [facility] Comment: Interpretive Data No reference range established. Current interpretive data was last revised 2019. Albumin Creatinine Ratio, Ur <18 1 - 29 mg/g DUANE Urine 05/03/2025 3:17 PM CDT 05/03/2025 3:51 PM CDT Leelee Schaefer NP LAB URINE ORDERABLES Final Resul t DUANE [address] Department of Laboratories [place], [place] [id number] * (ABNORMAL) DIABETES EYE EXAM (04/02/2025 7:35 AM CDT) Historical Provider HEALTH MAINTENANCE Final Result * Colonoscopy (03/22/2025 9:42 AM CDT) Anatomical Region Laterality Modality Other Narrative Procedure Note Natan Melvin MD - 03/22/2025 9:42 AM CDT [facility] Endoscopy Lab Patient Name: Mike Stoddard Procedure Date: 03/22/2025 9:42 AM Date of : 1975 Admit Type: Inpatient Age: 49 Gender: Male Note Status: Finalized Attending MD: Natan Melvin M.D. Procedure Date: 03/22/2025 Procedure: Colonoscopy Indications: Hematochezia Providers: Natan Melvin M.D., KELLI Castano (Anesthesia Staff), Emily Mccormack RN, Marialuisa Muñoz RN, Gorge Rider, Product Consultant, Rosario Francisco, Product Consultant Referring MD: Medicines: Monitored Anesthesia Care Complications: No immediate complications. Estimated Blood Loss: Estimated blood loss: none. Procedure: Pre-Anesthesia Assessment: - Prior to the procedure, a History and Physicalwas performed, and patient medications and allergieswere reviewed. The patient is competent. The risks and benefits of the procedure and the sedation optionsand risks were discussed with the patient. Allquestions were answered and informed consent was obtained. Patient identification and proposed procedure were verified by the physician, the nurse and the rod drawer in the procedure room. Mental Status Examination: alert and oriented. AirwayExamination: normal oropharyngeal airway and neck mobility. Respiratory Examination: clear to auscultation. CV Examination: normal. Prophylactic Antibiotics: The patient does not require prophylactic antibiotics. Prior Anticoagulants: The patient has taken no anticoagulant or antiplatelet agents. ASA Grade Assessment: III - A patient with severe systemic disease. After reviewing the risks and benefits,the patient was deemed in satisfactory condition to undergo the procedure. The anesthesia plan was touse monitored anesthesia care (MAC). Immediately priorto administration of medications, the patient was re-assessed for adequacy to receive sedatives. The heart rate, respiratory rate, oxygen saturations, blood pressure, adequacy of pulmonary ventilation,and response to care were monitored throughout the procedure. The physical status of the patient was re-assessed after the procedure. - The risks and benefits of the procedure and the sedation options and risks were discussed with the patient. All questions were answered and informed consent was obtained. After I obtained informed consent, the scope was passed under direct vision. Throughout theprocedure, the patient's blood pressure, pulse, and oxygen saturations were monitored continuously. The scopewas passed under direct vision. The Colonoscope was introduced through the anus and advanced to the the cecum, identified by appendiceal orifice andileocecal valve. The colonoscopy was performed without difficulty. The patient tolerated the procedurewell. The quality of the bowel preparation was adequate.The bowel preparation used was Plenvu via split dose instruction. Findings: Multiple small-mouthed diverticula were found in the left colon. Non-bleeding internal hemorrhoids were found during retroflexion. The hemorrhoids were Grade I (internal hemorrhoids that do notprolapse). The exam was otherwise without abnormality on direct and retroflexion views. Impression: - Diverticulosis in the left colon. - Non-bleeding internal hemorrhoids. - The examination was otherwise normal on directand retroflexion views. - No specimens collected. Recommendation: - High fiber diet. - Repeat colonoscopy in 10 years for screening purposes. Procedure Code(s): --- Professional --- 32513, Colonoscopy, flexible; diagnostic, including collection of specimen(s) by brushing or washing,when performed (separate procedure) Diagnosis Code(s): --- Professional --- K64.0, First degree hemorrhoids K92.1, Melena (includes Hematochezia) K57.30, Diverticulosis of large intestine without perforation or abscess without bleeding CPT copyright 2020 [employer]. All rights reserved. The codes documented in this report are preliminary and upon outpatient coder reviewmay be revised to meet current compliance requirements. Electronically signed by Natan Melvin M.D. Natan Melvin M.D. 03/22/2025 10:23:53 AM Number of Addenda: 0 Note Initiated On: 03/22/2025 9:42 AM Natan Melvin MD ENDOSCOPY PROCEDURES Ed ited Result - Final from Last 3 Months or Most Recently Relevant to Health Maintenance Insurance [facility]PPO Address: [place] [address] [facility]/[place]: [place] [address] [facility] [facility] H[facility]/PPO Address: [facility] [address] [place] [address] Advance Directives For more information, please contact: [phone] * Full Code (Latest Code Status on File) Date Activated Date Inactivated Comments 03/19/2025 1:53 AM 03/22/2025 10:01 PM * Full Code Date Activated Date Inactivated Comments 03/09/2025 6:41 PM 03/14/2025 5:34 PM * Full Code Date Activated Date Inactivated Comments 02/17/2025 8:35 PM 03/03/2025 10:22 PM Care Teams Crossbar Switch Adjuster Relationship Specialty [place] [address] [address] [facility] [address] [place] [address] PCP - General Family Medicine 06/03/25 Rubens Zuniga MD [facility] [facility] [address] Torrez [facility] [address] [place] [address] 03/31/18 Bassem Pena MD [address] [place] [address] Referring Physician Cardiology 02/17/25 Sarah Junior MSW Thermostatic Controls Supervisor 03/22/25 [place] [address] [address] [facility] [address] [place] [address] Consulting Physician Cardiology 04/13/25 [place] [address] [place] [address] Nurse Practitioner Cardiothoracic Surgery 04/13/25
--- OUTSIDE RECORDS SUMMARY | 2025-09-07 13:29 | XMS_ITS | Clinical Summary ---
Author Organization [facility] Address [address] [place] [address] Phone Care Team Providers Care Lacing Operator Name Role Phone Rubens Zuniga MD Primary Care Provider [phone] Social History Tobacco Use Types Packs/Day Years Used Date Smoking Tobacco: Never Assessed Sex and Gender Information Value Date Recorded Sex Assigned at Not on file Legal Sex Male 4:23 PM CDT Gender Identity Not on file Sexual Orientation Not on file Plan of Treatment Health Maintenance Due Date Last Done Comments Hepatitis C Virus (HCV) Screening 1975 TdaP Immunization 1975 Hepatitis B Immunization (1 of 3 - 19+ 3-dose series) 1992 Cologuard 2018 Colonoscopy 2018 Colorectal Cancer Screening 2018 Immunochemical Fecal Occult Blood 2018 Pneumococcal Immunization (5 0+ years) (1 of 1 - PCV) 2023 Zoster Immunization (1 of 2) 2023 Influenza Immunization (#1) 2025 SARS-COV-2 Immunization (3 - 2024- season) 2025 03/26/2021, 03/05/2021 Respiratory Syncytial Virus (RSV) Immunization (Adult) (1 - 1-dose 75+ series) 2048 Human Papillomavirus (HPV) Immunization Aged Out No longer eligible b ased on patient's age to complete this topic Meningococcal Immunization (ACWY) Aged Out No longer eligible b ased on patient's age to complete this topic Rotavirus Immunization Aged Out No lo nger eligible based on patient's age to complete this topic Insurance [facility] Care Teams Lacing Operator Relationship Specialty Start Date End Date Rubens Zuniga MD [facility] [address] Lore CARRANZA [address] [place] [id number] PCP - General Cardiovascular Disease - Cardiology 03/04/25
--- OUTSIDE RECORDS SUMMARY | 2025-09-07 13:29 | XMS_ITS | Encounter Summary ---
Author Organization [facility] Healthcare Address [address] [place] [address] Care Team Providers Care Mobile Sales Consultant Name Role Phone Rubens Zuniga MD Unavailable [phone] Bassem Pena MD Unavailable No, Physician Primary Care Provider Matilda Nicole Unavailable Unavailable Elvis Navas DNP Unavailable Sarah Junior [employer]ET[employer] REVIEWER Unavailable Unavailable Carlos Pereira MD Unavailable [phone] Corina Pulido NP Unavailable Leelee Schaefer NP Primary Care Provider [phone] Encounter Details Date Type Department Care Team (Late st Contact Info) Description 03/27/2025 [facility] Post Discharge Follow up phone call [facility] [address] [place] [address] Mary Kay Pacheco Social History Tobacco Use Types Packs/Day Years Used Date Smoking Tobacco: Some Days Smokeless Tobacco: Never Alcohol Use Standard Drinks/Week Comments Not Currently 0 (1 standard drink = 0.6 oz pur [...] materials from doctor or pharmacy Never 03/31/2025 [facility] Utilities Answer Date Recorded In the past [...] often do you attend chur ch or restoration services? Never 03/15/2025 Do you belong to any clubs o r organizations such as mormonism groups, unions, fraternal or athletic groups, or school groups? No 03/15/2025 How often do you attend meet ings of the clubs or organizations you belong to? Never 03/15/2025 Are you , , di vorced, , never , or living with a partner? Never 03/15/2025 AUDIT-C Answer Date Recorded Q1: How often do you have a drink containing alcohol? Never 03/15/2025 Q2: How many drinks containi ng alcohol do you have on a typical day when you are drinking? Patient does not drink Q3: How often do you have si x or more drinks on one occasion? Never 03/15/2025 Overall Financial Resource Strain (CARDIA) Answe r Date Recorded How hard is it for you to pa y for the very basics like food, housing, medical care, and heating? Not hard at all 03/15/2025 PHQ-2 Answer Date Recorded PHQ-2 Total Score (If total score is 3 or more points, staff should administer the PHQ-9) 3 03/19/2025 Hunger Vital Sign Answer Date Recorded Within [...] PHQ-9 Answer Date Recorded PHQ-9 Total Score 5 03/19/2025 Housing Stability Vital Sign Answer Lebron e Recorded In the last 12 months, was t here a time when you were not able to pay the mortgage or rent on time? No 03/15/2025 In the past 12 months, how m any times have you moved where you were living? 0 03/15/2025 At any time in the past 12 m [facility], were you homeless or living in a snf (including now)? No 03/15/2025 Personal Safety Answer Date Recorded Have you ever been in or are you currently in a harmful physical or emotional relationship or is someone making you feel afraid or unsafe? Denies 03/19/2025 Sex and Gender Information Value Date Recorded Sex Assigned at Not on file Legal Sex Male 12:15 AM ERP IMPLEMENTATION CONSULTANT Gender Identity Not on file Sexual Orientation Not on file documented as of this encounter Plan of Treatment Not on file documented as of this encounter Visit Diagnoses Not on filedocumented in this encounter Additional Health Concerns Infection Onset Date Last Indicated Resolved Time COVID: Suspected 04/25/2025 04/25/2025 04/25/2025 9:20 AM CDT documented as of this encounter Care Teams Mobile Sales Consultant Relationship Specialty Start Date End Date No, Physician PCP - General 03/04/25 05/02/25 [place] [address] [address] [facility] [address] [place] [address] PCP - General Family Medicine 06/03/25 Rubens Zuniga MD [address] [facility] [address] [facility] [address] [place] [address] 03/31/18 Bassem Pena MD [address] [place] [address] Referring Physician Cardiology 02/17/25 Matilda Nicole [address] [place] [address] [facility] Outpatient Chicken Dresser 03/09/25 04/12/25 Elvis Navas DNP [address] [address] [facility] [address] [place] [address] Nurse Practitioner Internal Medicine 03/15/25 04/12/25 Sarah Junior MSW Cooler Man 03/22/25 [place] [address] [address] [facility] [address] [place] [address] Consulting Physician Cardiology 04/13/25 [place] [address] [address] [facility] [address] [place] [address] Nurse Practitioner Cardiothoracic Surgery 04/13/25 documented as of this encounter
--- OUTSIDE RECORDS SUMMARY | 2025-09-07 13:29 | XMS_ITS | Encounter Summary ---
Author Organization [facility] Healthcare Address [address] [place] [address] Care Team Providers Care Paper Baling Machine Operator Name Role Phone Rubens Zuniga MD Unavailable Bassem Pena MD Unavailable No, Physician Primary Care Provider [phone] Matilda Nicole Unavailable Unavailable Elvis Navas DNP Unavailable Sarah Junior [employer] Unavailable Unavailable Carlos Pereira MD Unavailable Corina Pulido NP Unavailable Leelee Schaefer NP Primary Care Provider [phone] Encounter Details Date Type Department Care Team (Late st Contact Info) Description 03/15/2025 [facility] Post Discharge Follow up phone call [facility] [address] [place] [address] Mary Kay Pacheco Social History Tobacco Use Types Packs/Day Years Used Date Smoking Tobacco: Some Days Smokeless Tobacco: Never Alcohol Use Standard Drinks/Week Comments Not Currently 0 (1 standard drink = 0.6 oz pur e alcohol) OASIS D0700: Social Isolation Answer Da te Recorded Frequency of experiencing loneliness or isolatio n Often 03/15/2025 OASIS A1250: Transportation Answer Date Recorded Lack of Transportation (Medical) No 03/15/2025 Lack of Transportation (Non-Medical) No 03/15/2025 Patient Unable or Declines to Respond No 03/15/2025 OASIS B1300: Health Literacy Answer Lebron e Recorded Frequency of needing help to read materials from doctor or pharmacy Often 03/15/2025 [facility] Utilities Answer Date Recorded In the [...] often do you attend chur ch or mandaeism services? Never 03/15/2025 Do you belong to any clubs o r organizations such as congregation groups, unions, fraternal or athletic groups, or [...] any time in the past 12 m [facility], were you homeless or living in a long term (including now)? No 03/15/2025 Personal Safety Answer Date Recorded Have you ever been in or are you currently in a harmful physical or emotional relationship or is someone making you feel afraid or unsafe? Denies 03/19/2025 Sex and Gender Information Value Date Recorded Sex Assigned at Not on file Legal Sex Male 12:15 AM PIE BOTTOMER Gender Identity Not on file Sexual Orientation Not on file documented as of this encounter Functional Status * BP Location Answer Date of Assessment Author Left arm 03/15/2025 1:46 PM Chilo Villarreal RN * Question Answer Date of Assessment Author 1. Has the patient self-reported, presented with clinical signs of, or have a documented history of any of the following within the past 30 days? No 03/18/2025 7:36 PM Karyn Oneal RN * Question Answer Date of Assessment Author Is the patient being treated today because it is known or suspected that they prepared, started, or tried to end their life? No 03/18/2025 7:36 PM Karyn Oneal RN * Question Answer Date of Assessment Author 1. In the past month, have you wished you were or that you could go to sleep and not wake up? No 03/18/2025 7:36 PM Karyn Oneal RN 2. In the past month, have you actually had any thoughts of killing yourself? No 03/18/2025 7:36 PM Karyn Oneal RN 6. Have you ever done anything, started to do anything, or prepared to do anything to end your life? No 03/18/2025 7:36 PM Valentina Oneal RN * Suicide Risk Level Answer Date of Assessment Author No risk level 03/18/2025 7:36 PM Martha Oneal RN * Self-Injurious Risk Level Answer Date of Assessment Author No risk level 03/18/2025 7:36 PM Martha Oneal RN * AUDIT-C Score Answer Date of Assessment Author 0 03/15/2025 12:37 PM Matilda Sy * Alcohol Use Question Answer Date of Assessment Author Q1: How often do you have a drink containing alcohol? Never 03/15/2025 12:37 PM Yanci Blanco ra Q2: How many drinks containing alcohol do you have on a typical day when you are drinking? Patient does not drink 03/15/2025 12:37 PM Matilda Blanco Q3: How often do you have six or more drinks on one occasion? Never 03/15/2025 12:37 PM Yanci Blanoc ra * Fall Risk Assessment Tool - MEDFRAT Question Answer Date of Assessment Author Prior Fall Event (Autopopulated from EMR) None found 03/18/2025 7:36 PM Lorenzo Oneal RN History of falling in last 3 months, including since admission 0 03/18/2025 7:36 PM Karyn Oneal RN Confusion or disorientation 0 03/18/2025 7: 36 PM Karyn Oneal RN Intoxicated or sedated 0 03/18/2025 7:36 PM Karyn Oneal RN Impaired gait 0 03/18/2025 7:36 PM Karyn Alarcon RN Mobility assist device used 0 03/18/2025 7: 36 PM Karyn Oneal RN Altered elimination 0 03/18/2025 7:36 PM CD T Karyn Torres RN Fall risk score: (1-2 low risk), (3-4 moderate risk), (5 or more high risk) 0 03/18/2025 7:36 PM CDT Karyn Torres RN * BP Location Answer Date of Assessment Author Left arm 03/15/2025 1:46 PM CDT Chilo Ag RN documented as of this encounter Plan of Treatment Not on file documented as of this encounter Visit Diagnoses Not on filedocumented in this encounter Additional Health Concerns Infection Onset Date Last Indicated Resolved Time COVID: Suspected 04/25/2025 04/25/2025 04/25/2025 9:20 AM CDT documented as of this encounter Care Teams Paper Baling Machine Operator Relationship Specialty Start Date End Date No, Physician PCP - General 03/04/25 05/02/25 [place] [address] [address] [facility] [address] [place] [address] PCP - General Family Medicine 06/03/25 Rubens Zuniga MD [address] [facility] [address] Torrez [facility] [address] [place] [address] 03/31/18 Bassem Pena MD [address] [place] [address] Referring Physician Cardiology 02/17/25 Matilda Nicole [address] [address] [place] [address] [facility] Outpatient Medical Research Assistant 03/09/25 04/12/25 Elvis Navas DNP [address] [address] [facility] [address] [place] [address] Nurse Practitioner Internal Medicine 03/15/25 04/12/25 Sarah Junior MSW Construction Trench Digger 03/22/25 [place] [address] [address] [facility] [address] [place] [address] Consulting Physician Cardiology 04/13/25 [place] [address] [address] [facility] [address] [place] [address] Nurse Practitioner Cardiothoracic Surgery 04/13/25 documented as of this encounter
[2025-09-07] MEDS: HYDROcodone/acetaminophen (*CRX) 10-325 MG TABLET 1 TAB PO (13:40)
--- OUTSIDE RECORDS SUMMARY | 2025-09-07 13:50 | XMS_ITS | Clinical Summary ---
Author Organization [facility] Clinical [facility] Address [facility] [place] [address] Care Team Providers Care Restorative Care Technician Name Role Phone Rubens Zuniga MD Unavailable [phone] Bassem Pena MD Unavailable Sarah Junior TELEPHONIC RN Unavailable Unavailable Carlos Pereira MD Unavailable Corina Pulido NP Unavailable [phone] Leelee Schaefer NP Primary Care Provider [phone] Allergies Active Allergy Reactions Criticality Noted Date [...] 05/03/2025 Assessment & Plan (09/03/2025 4:19 PM ESCAPEMENT MATCHER): Intermittent constipation despite Colace and Senna. Improvement [...] pharmacy. Assessment & Plan (09/03/2025 4:20 PM ESCAPEMENT MATCHER): Nicotine dependence in remission. Reduced nicotine product [...] 03/10/2025 Assessment & Plan (09/03/2025 4:18 PM ESCAPEMENT MATCHER): Managed with Mounjaro. Cravings suggest dose adjustment needed. Supervisory Geographer involved. - Increased Mounjaro dose after current supply is finished. - Informed air pollution compliance inspector of dose increase. - Reports significant constipation [...] from there. 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 He feels Dexcom is not always accurate and has multiple technical issues. Will try Honey, rx sent. Chronic heart failure 03/10/2025 Assessment & Plan (09/03/2025 6:56 AM ESCAPEMENT MATCHER): Asymptomatic, chronic condition. - Continue Entresto 24/26 [...] disease invo lving coronary bypass graft of [place] heart with angina pectoris 02/19/2025 Assessment & Plan (05/03/2025 2:11 PM CDT): Entresto 24/26 mg Chest pain 02/17/2025 Hypertension 03/28/2018 Assessment & Plan (09/03/2025 4:20 PM ESCAPEMENT MATCHER): Well-controlled with amlodipine. - Continue current antihypertensive [...] 03/28/2018 Assessment & Plan (09/03/2025 4:19 PM ESCAPEMENT MATCHER): Management includes Mounjaro and physical activity. Goal [...] BMI Follow-up includes: education provided. Followed by home therapy clinician Peripheral neuropathy 03/28/2018 Assessment & Plan (05/03/2025 4:41 PM CDT): Diabetic Neuropathy Intermittent numbness and tingling likely due to diabetic neuropathy. Gabapentin considered for symptom management. - Start gabapentin 100 mg at bedtime. - Monitor for side effects such as drowsiness and adjust dosage as needed. -Feet more than hands Hyperlipidemia 11/27/2017 Assessment & Plan (09/03/2025 4:20 PM ESCAPEMENT MATCHER): Managed with atorvastatin. - Continue atorvastatin as prescribed. Assessment & Plan (07/28/2025 11:24 AM CDT): Chronic problem. On statin therapy, no changes. Assessment & Plan (05/03/2025 4:42 PM CDT): Hyperlipidemia On atorvastatin 40 mg for management. Prescription refill issue unresolved. [place]-3 supplementation deferred. - Order cholesterol panel. Assessment [...] Department Care Team Description 09/03/20 3:00 PM ESCAPEMENT MATCHER Office Visit [facility] at [address] [place] [address] Leelee Schaefer NP Situational depression [...] unspecified obesity type 08/08/20 25 Results Follow-Up [facility] Gastroenterology at [address] [place] [address] Shila Metzger MD Surgical pathology 08/03/20 9:03 AM CDT Anesthesia Event [facility] GI Lab [address] [place] [address] Emily Orozco MD PhD Tere Lazar MD PhD 08/03/20 9:00 AM CDT - 08/03/20 9:30 AM CDT Surgery [facility] GI Lab [address] [place] [address] Shila Metzger MD ESOPHAGOGASTRODUODENOSCOPY BIOPSY 08/03/20 7:31 AM CDT - 08/03/20 10:53 AM CDT Hospital Encounter [facility] GI Lab [address] [place] [address] Shila Metzger MD Abiodun, Olufemi Joseph, MD Screening for colon cancer; Bleeding duodenal ulcer Discharge Disposition: Discharge to home or self care 07/28/20 9:15 AM CDT Office Visit [facility] [address] [address] Ailyn Graham PA Type 2 diabetes mellitus with hyperglycemia, with long-term current use of insulin (HCC) (Primary Dx); Primary hypertension; Mixed hyperlipidemia 07/26/20 Telephone [facility] Gastroenterology at [address] [address] Shila Metzger MD EGD 07/26/20 Telephone [facility] Gastroenterology at [address] [address] Shila Metzger MD 07/23/20 1:00 PM CDT Office Visit [address] [id number] Postsurgical aortocoronary bypass status (Primary Dx) 07/21/20 1:00 PM CDT Office Visit [address] [id number] Status post coronary artery bypass graft (Primary Dx) 07/19/20 1:00 PM CDT Office Visit [facility] [address] [place] [address] Postsurgical aortocoronary bypass status (Primary Dx) 07/16/20 1:00 PM CDT Office Visit [address] [address] S/P CABG (coronary artery bypass graft) (Primary Dx) 07/14/20 1:00 PM CDT Office Visit [address] [address] Postsurgical aortocoronary bypass status (Primary Dx) 07/12/20 1:00 PM CDT Office Visit [address] [address] S/P CABG (coronary artery bypass graft) (Primary Dx) 07/09/20 1:00 PM CDT Office Visit [address] [address] Postsurgical aortocoronary bypass status (Primary Dx) 07/07/20 1:00 PM CDT Office Visit [address] [address] Postsurgical aortocoronary bypass status (Primary Dx) 07/05/20 1:00 PM CDT Office Visit [address] [address] Postsurgical aortocoronary bypass status (Primary Dx) 07/02/20 1:00 PM CDT Office Visit [address] [address] Postsurgical aortocoronary bypass status (Primary Dx) 06/30/20 1:00 PM CDT Office Visit [address] [address] Postsurgical aortocoronary bypass status (Primary Dx) 06/30/20 Telephone [facility] Gastroenterology at [address] [place] [address] Shila Metzger MD 06/29/20 11:30 AM CDT Office Visit [facility] [address] [place] [address] [address] [place] [address] Corina Pulido, ALFREDO S/P CABG x 4 (Primary Dx) 06/28/20 1:00 PM CDT Office Visit [facility] Cardiac [address] [address] Postsurgical aortocoronary bypass status (Primary Dx) 06/25/20 1:00 PM CDT Office Visit [facility] Cardiac [address] [address] Postsurgical aortocoronary bypass status (Primary Dx) 06/23/20 1:00 PM CDT Office Visit [address] [address] Postsurgical aortocoronary bypass status (Primary Dx) 06/21/20 1:00 PM CDT Office Visit [address] [address] Postsurgical aortocoronary bypass status (Primary Dx) 06/18/20 1:00 PM CDT Office Visit [address] [address] Postsurgical aortocoronary bypass status (Primary Dx) 06/16/20 1:00 PM CDT Office Visit [address] [address] Postsurgical aortocoronary bypass status (Primary Dx) 06/11/20 1:00 PM CDT Office Visit [address] [address] Postsurgical aortocoronary bypass status (Primary Dx) 06/11/20 12:00 PM CDT Lab [address] [address] 06/09/20 1:00 PM CDT Office Visit [address] [address] S/P CABG (coronary artery bypass graft) (Primary Dx) 06/07/20 1:00 PM CDT Office Visit [address] [address] Postsurgical aortocoronary bypass status (Primary Dx) from Last 3 Months Immunizations Immunization Administration Dates Next Due Hep B Vaccine 09/03/2025,05/05/2025 Influenza, Unspecified 09/03/2025(Deferred: Ankita ent Refused) Surgical History Surgery Date Site/Laterality Comments CARDIAC CATHETERIZATION 02/18/2025 N/A Procedure: LEFT HEART CATHETERIZATION WITH CORONARY ANGIOGRAPHY AND WITH OR WITHOUT LEFT VENTRICULOGRAM 77661; Surgeon: Bassem Pena MD; Location: CARDIAC ELECTRON MICROSCOPIST; Service: Cardiovascular; Laterality: N/A; Medical devices from [...] often do you attend chur ch or taoism services? Never 03/15/2025 Do you belong to any clubs o r organizations such as tenriism groups, unions, fraternal or athletic groups, or [...] any time in the past 12 m [facility], were you homeless or living in a senior living (including now)? No 03/15/2025 AUDIT-C Answer Date [...] on file Legal Sex Male 12:15 AM ESCAPEMENT MATCHER Gender Identity Not on file Sexual Orientation Not on file Last Filed Vital Signs Vital Sign Reading Time Taken Comments Blood Pressure 117/78 09/03/2025 3:02 PM ESCAPEMENT MATCHER Pulse 64 09/03/2025 3:02 PM ESCAPEMENT MATCHER Temperature 36.8 C (98.3 F) 08/03/2025 9:40 AM CDT Respiratory Rate 17 09/03/2025 3:02 PM ESCAPEMENT MATCHER Oxygen Saturation 98% 08/03/2025 10:10 AM CDT Inhaled Oxygen Concentration - - Weight 94.3 kg (208 lb) 09/03/2025 3:02 PM ESCAPEMENT MATCHER Height 172.7 cm (5' 7.99) 09/03/2025 3:02 PM CS T Body Mass Index 31.63 09/03/2025 3:02 PM ESCAPEMENT MATCHER Plan of Treatment Health Maintenance Due Date [...] 05/05/2025, 05/03/2025 Medical Devices Implanted Type [facility] Teacher Device Identifier Shelf Expiration Date Model / Serial / Lot [employer] Graft Straight Thoracic Collagen Coated Double Velour Hemashield Keene [id number] Woven Polyester [id number] - [id number] - [id number] Implanted:Qty: 1 on 02/23/2025 by Kel Reyes MD at [facility] Graft N/A: Aorta [employer] [id number] 04/12/2029 [id number] / [id number] [employer] Plate Bone Low Profile 4 Hole Box Sternum Ti 115.103.04 - [id number] Implanted:Qty: 1 on 02/23/2025 by Kel Reyes MD at [facility] Plate N/A: Sternum [employer] 115.103.0 4 / / [employer] Plate Bone Low Profile 6 Hole H Shape Sternum Ti 115.102.06 - [id number] Implanted:Qty: 1 on 02/23/2025 by Kel Reyes MD at [facility] Plate N/A: Sternum [employer] 115.102.0 6 / / [employer] Plate Bone Low Profile 6 Hole O Shape Sternum Ti 115.104.06 - [id number] Implanted:Qty: 1 on 02/23/2025 by Kel Reyes MD at [facility] Plate N/A: Sternum [employer] 115.104.0 6 / / [employer] Screw Bone Slf Drl Full Thread Locking 3.5x18mm Ti 100.035.18 - [id number] Implanted:Qty: 16 on 02/23/2025 by Kel Reyes MD at [facility] Screw N/A: Sternum [employer] 100.035.1 8 / / Biocycle Angio-Seal Vip 6fr Closere Device [id number] - [id number] Implanted:Qty: 1 on 02/18/20[id number] / [employer] Kit Ventricular Assist Device Pump Percutaneous Impella 5.5 Smartassist [id number] - S00 - [id number] Implanted:Qty: 1 on 02/23/2025 by Kel Reyes MD at [facility] N/A: Heart [employer] [id number] 06/13/2026 [id number] / 00 / [id number] Procedures Procedure Name Priority Date/Time Associated [...] results best viewed via link to PDF [facility] Department of Pathology [address] [place] [address] Note to Patients: This report may [...] Report Patient Name: MIKE STODDARD III Address: [address] [place] [address] Gender: M : 1975 (Age: 50) Service: Gastro Location: GI Lab Hospital #: [id number] Patient Type: [facility] Taken: 08/03/2025 Received: 08/03/2025 Accessioned: 08/03/2025 Reported: [...] determined by the Surgical Pathology Department at [facility] as part of an ongoing quality control associate program and in compliance with federally mandated [...] characteristics determined by the Surgical Pathology Department [facility]. It has not been cleared or approved by the U. S. Food and Drug Administration. Note for decalcified specimens: This assay has not been validated on decalcified tissues. Results should be interpreted with caution given the possibility of false negativity on decalcified specimens Shila Metzger MD LAB PATHOLOGY ORDERABLES Fi nal Result Performing Organization Address City/State/[facility] Co de Phone Number PATHOLOGY [address] [place] [address] * EGD (08/03/2025 9:00 AM CDT) Anatomical Region Laterality Modality Other Narrative Procedure Note Shila Metzger MD - 08/03/2025 9:00 AM CDT - [facility] Endoscopy Lab Patient Name: Mike Stoddard Procedure [...] aleve, naproxen Procedure Code(s): --- Professional --- 68279, Esophagogastroduodenoscopy, flexible, transoral; with biopsy, single or multiple Diagnosis Code(s): --- Professional --- K29.70, Gastritis, unspecified, without bleeding K44.9, Diaphragmatic hernia without obstruction or gangrene K22.89, Other specified disease of esophagus K26.9, Duodenal ulcer, unspecified as acute or chronic, without hemorrhage or perforation CPT copyright 2022 [employer]. All rights reserved. The codes documented in this report are preliminary and upon procedure analyst reviewmay be revised to meet current compliance [...] - DEVICE Final Result Performing Organization Address City/State/[facility] Co id Phone Number [facility] [address] Department [place] [address] * (ABNORMAL) POCT hemoglobin A1c (07/28/2025 9:10 AM CDT) Hemoglobin A1C, POC 6.3(A) 4.0 - 5.6 % Capillary blood 07/28/2025 9 :10 AM CDT Ailyn SCHRADER POINT OF CARE TEST ORDE RABLES Final Result * (ABNORMAL) POCT glucose (07/28/2025 9:10 AM CDT) Pathologist [facility] Glucose Blood, POC 111 Normal Fasting 70 - 100, Random <200 mg/dL Comment:PPG 1 Hrs Blood 07/28/2025 9:10 AM CDT Ailyn SCHRADER POINT OF CARE TEST ORDLore DONATO Final Result * (ABNORMAL) Differential, auto (06/11/2025 12:41 PM CDT) [facility] Neutrophil abs 4.56 1.50 - 6.50 K/cumm Imm gran abs 0.02 0.00 - 0.10 K/cumm [facility] Lymphocyte abs 1.31 0.80 - 3.30 K/cumm [facility] Monocyte abs 0.38 0.20 - 0.80 K/cumm [facility] Eosinophil abs 0.59(H) 0.00 - 0.50 K/cumm [facility] Basophil abs 0.05 0.00 - 0.10 K/cumm [facility] Neutrophil pct 66.0 % [facility] Comment: Interpretive Data Percent cell count reference ranges are not reported, since discordance with absolute values may lead to misinterpretation of CBC data. Current Interpretive Data was last revised on 2018. Imm gran pct 0.3 % [facility] Comment: Interpretive Data Percent cell count reference ranges are not reported, since discordance with absolute values may lead to misinterpretation of CBC data. Current Interpretive Data was last revised on 2018. Lymphocyte pct 19.0 % [facility] Comment: Interpretive Data Percent cell [...] revised on 2018. Eosinophil pct 8.5 % [facility] Comment: Interpretive Data Percent cell count reference [...] ORDERABLES F inal Result Performing Organization Address [facility]/ZIP Co de Phone Number [facility] [address] [place] [address] * (ABNORMAL) CBC with auto differential (06/11/2025 12:41 PM CDT) WBC 6.91 3.80 - 9.90 K/cumm Hgb 16.0 13.0 - 17.5 g/dL [facility] Hct 52.0(H) 38.9 - 50.3 % [facility] Plt 267 150 - 400 K/cumm [facility] MPV 10.2 9.1 - 12.3 fL [facility] RBC 6.24(H) 4.30 - 5.80 M/cumm [facility] MCV 83.3 81.3 - 96.4 fL [facility] MCH 25.6(L) 27.1 - 33.3 pg [facility] MCHC 30.8(L) 32.3 - 35.7 g/dL [facility] RDW CV 12.6 11.1 - 14.9 % [facility] RDW SD 38.0 35.7 - 48.1 fL [facility] NRBC abs 0.00 0.00 - 0.01 K/cumm [facility] Blood 06/11/2025 12:4 1 PM CDT 06/11/2025 12:41 PM CDT Carlos Pereira MD LAB BLOOD ORDERABLES F inal Result Performing Organization Address [facility]/ZIP Co de Phone Number [facility] [address] [place] [address] * eGFR (06/11/2025 12:40 PM [...] BLOOD ORDERABLES F inal Result [facility] [address] Department [place] [address] * (ABNORMAL) Hemoglobin A1c (06/11/2025 12:40 PM CDT) Hgb A1C 6.2(H) 4.0 - 5.6 % Estimated Average Glucose 131 mg/dL [facility] Comment: The ADA recommends reporting an estimated Average Glucose (eAG) with all Hemoglobin A1c results using the equation derived from a study of 507 normal and diabetic adults. Minority populations were underrepresented and children were not included. (Diabetes Care 31:7477-6627, 2008). The eAG is not equivalent to a fasting glucose. Blood 06/11/2025 12:4 0 PM CDT 06/11/2025 12:40 PM CDT Jennathiago Nguyễn Preeira MD LAB BLOOD ORDERABLES F inal Result [facility] [address] [place] [address] * (ABNORMAL) Lipid panel (06/11/2025 12:40 PM [...] BLOOD ORDERABLES F inal Result [facility] [address] [place] [address] * (ABNORMAL) Comprehensive metabolic panel (06/11/2025 12:40 [...] LAB BLOOD ORDERABLES F inal Result [facility] [address] Department [place] [address] * PSA screen (05/03/2025 4:08 PM CDT) [facility] PSA-Total 0.33 <=3.90 ng/mL Comment: Interpretive [...] ORDERABLES Final Resul t Performing Organization Address [facility] de Phone Number [facility] [address] [place] [address] * Hepatitis C antibody Blood (05/03/2025 3:17 PM CDT) [facility] Hep C Ab Nonreactive Nonreactive Comment: [...] ORDER RAMO Final Result Performing Organization Address [facility] Co de Phone Number [facility] SERNA [address] [place] [address] * Albumin Creatinine Ratio, Urine (05/03/2025 3:17 PM CDT) [facility] Albumin Ur <12.0 mg/L Comment: Interpretive Data No reference range established. Current interpretive data was last revised 2019. Creatinine Ur 67.3 mg/dL [facility] Comment: Interpretive Data No reference range established. Current interpretive data was last revised 2019. Albumin Creatinine Ratio, Ur <18 1 - 29 mg/g [facility] Urine 05/03/2025 3:17 PM CDT 05/03/2025 3:51 PM CDT Leelee Schaefer NP LAB URINE ORDERABLES Final Resul t [facility] [address] Department of Laboratories [place], [place] [id number] * (ABNORMAL) DIABETES EYE EXAM (04/02/2025 7:35 AM CDT) Historical Provider HEALTH MAINTENANCE Final Result * Colonoscopy (03/22/2025 9:42 AM CDT) Anatomical Region Laterality Modality Other Narrative Procedure Note Natan Melvin MD - 03/22/2025 9:42 AM CDT [facility] Endoscopy Lab Patient Name: Mike Stoddard Procedure Date: 03/22/2025 9:42 AM Date of : 1975 Admit Type: Inpatient Age: 49 Gender: Male Note Status: Finalized Attending MD: Natan Melvin M.D. Procedure Date: 03/22/2025 Procedure: Colonoscopy Indications: Hematochezia Providers: Natan Melvin M.D., KELLI Castano (Anesthesia Staff), Emily Mccormack RN, Marialuisa Muñoz RN, Gorge Rider, Electrician Third, Rosario Francisco, Electrician Third Referring MD: Medicines: Monitored Anesthesia Care Complications: [...] by the physician, the nurse and the plastics repairer in the procedure room. Mental Status Examination: [...] screening purposes. Procedure Code(s): --- Professional --- 40849, Colonoscopy, flexible; diagnostic, including collection of specimen(s) by brushing or washing,when performed (separate procedure) Diagnosis Code(s): --- Professional --- K64.0, First degree hemorrhoids K92.1, Melena (includes Hematochezia) K57.30, Diverticulosis of large intestine without perforation or abscess without bleeding CPT copyright 2020 [employer]. All rights reserved. The codes documented in this report are preliminary and upon procedure analyst reviewmay be revised to meet current compliance requirements. Electronically signed by Natan Melvin M.D. Natan Melvin M.D. 03/22/2025 10:23:53 AM Number of Addenda: 0 Note Initiated On: 03/22/2025 9:42 AM Natan Melvin MD ENDOSCOPY PROCEDURES Ed ited Result - Final from Last 3 Months or Most Recently Relevant to Health Maintenance Insurance [facility] CHOICE PLUS [facility] CHOICE PLUS [facility] CHOICE PLUS Advance Directives For more information, please contact: [phone] * Full Code (Latest Code Status on File) Date Activated Date Inactivated Comments 03/19/2025 1:53 AM 03/22/2025 10:01 PM * Full Code Date Activated Date Inactivated Comments 03/09/2025 6:41 PM 03/14/2025 5:34 PM * Full Code Date Activated Date Inactivated Comments 02/17/2025 8:35 PM 03/03/2025 10:22 PM Care Teams Restorative Care Technician Relationship Specialty [place] [address] [address] [facility] [address] [place] [address] PCP - General Family Medicine 06/03/25 Rubens Zuniga MD [facility] [facility] [address] Torrez [facility] [address] [place] [address] 03/31/18 Bassem Pena MD [address] [place] [address] Referring Physician Cardiology 02/17/25 Sarah Junior MSW Mechanical Service Representative 03/22/25 [place] [address] [address] [facility] [address] [place] [address] Consulting Physician Cardiology 04/13/25 [place] [address] [place] [address] Nurse Practitioner Cardiothoracic Surgery 04/13/25
--- OUTSIDE RECORDS SUMMARY | 2025-09-07 13:50 | XMS_ITS | Clinical Summary ---
Author Organization [facility] Address [address] [place] [address] Phone Care Team Providers Care Sustainable Design Consultant Name Role Phone Rubens Zuniga MD Primary Care Provider [phone] Social History Tobacco Use Types Packs/Day Years [...] patient's age to complete this topic Insurance [facility] Care Teams Sustainable Design Consultant Relationship Specialty Start Date End Date Rubens Zuniga MD [facility] [address] Lore CARRANZA [address] [place] [address] PCP - General Cardiovascular Disease - Cardiology 03/04/25
--- OUTSIDE RECORDS SUMMARY | 2025-09-07 13:50 | XMS_ITS | Encounter Summary ---
Author Organization [facility] Healthcare Address [address] [place] [address] Care Team Providers Care Social Work Job Titles Name Role Phone Rubens Zuniga MD Unavailable [phone] Bassem Pena MD Unavailable No, Physician Primary Care Provider [phone] Matilda Nicole Unavailable Unavailable Elvis Naavs DNP Unavailable Sarah Junior ASSESSMENT ANALYST Unavailable Unavailable Carlos Pereira MD Unavailable Corina Pulido NP Unavailable Leelee Schaefer NP Primary Care Provider [phone] Encounter Details Date Type Department Care Team (Late st Contact Info) Description 03/15/2025 [facility] Post Discharge Follow up phone call [facility] [address] [place] [address] Mary Kay Pacheco Social History [...] materials from doctor or pharmacy Often 03/15/2025 [facility] Utilities Answer Date Recorded In the [...] often do you attend chur ch or yarsani services? Never 03/15/2025 Do you belong to any clubs o r organizations such as adventist groups, unions, fraternal or athletic groups, or [...] any time in the past 12 m [facility], were you homeless or living in a alf (including now)? No 03/15/2025 Personal Safety Answer Date Recorded Have you ever been in or are you currently in a harmful physical or emotional relationship or is someone making you feel afraid or unsafe? Denies 03/19/2025 Sex and Gender Information Value Date Recorded Sex Assigned at Not on file Legal Sex Male 12:15 AM ROUTE INSPECTOR Gender Identity Not on file Sexual Orientation [...] No risk level 03/18/2025 7:36 PM Martha nOeal RN * AUDIT-C Score Answer Date of [...] one occasion? Never 03/15/2025 12:37 PM Yanci Blanco ra * Fall Risk Assessment Tool - [...] documented as of this encounter Care Teams Social Work Job Titles Relationship Specialty Start Date End Date No, Physician PCP - General 03/04/25 05/02/25 [place] [address] [address] [facility] [address] [place] [address] PCP - General Family Medicine 06/03/25 Rubens Zuniga MD [address] Torrez [facility] [address] [place] [address] 03/31/18 Bassem Pena MD [address] [place] [address] Referring Physician Cardiology 02/17/25 Matilda Nicole [address] [place] [address] [facility] Outpatient Laborer Adjustable Steel Joist 03/09/25 04/12/25 Elvis Navas DNP [address] [facility] [address] [place] [address] Nurse Practitioner Internal Medicine 03/15/25 04/12/25 Sarah Junior MSW Timber Incisor Operator 03/22/25 [place] [address] [address] [facility] [address] [place] [address] Consulting Physician Cardiology 04/13/25 [place] [address] [address] [facility] [address] [place] [address] Nurse Practitioner Cardiothoracic Surgery 04/13/25 documented as of this encounter
--- OUTSIDE RECORDS SUMMARY | 2025-09-07 13:50 | XMS_ITS | Encounter Summary ---
Author Organization [facility] Healthcare Address [address] [place] [address] Care Team Providers Care Tempering Kiln Tender Name Role Phone Rubens Zuniga MD Unavailable [phone] Bassem Pena MD Unavailable No, Physician Primary Care Provider Matilda Nicole Unavailable Unavailable Elvis Navas DNP Unavailable Sarah Junior CHEMICAL MACHINE TENDER Unavailable Unavailable Carlos Pereira MD Unavailable Corina Pulido NP Unavailable Leelee Schaefer NP Primary Care Provider [phone] Encounter Details Date Type Department Care Team (Late st Contact Info) Description 03/27/2025 [facility] Post Discharge Follow up phone call [facility] [address] [place] [address] Mary Kay Pacheco Social History [...] materials from doctor or pharmacy Never 03/31/2025 [facility] Utilities Answer Date Recorded In the [...] often do you attend chur ch or caodaism services? Never 03/15/2025 Do you belong to any clubs o r organizations such as judaism groups, unions, fraternal or athletic groups, or [...] in the past 12 m [facility], were you homeless or living in a prison (including now)? No 03/15/2025 Personal Safety Answer Date Recorded Have you ever been in or are you currently in a harmful physical or emotional relationship or is someone making you feel afraid or unsafe? Denies 03/19/2025 Sex and Gender Information Value Date Recorded Sex Assigned at Not on file Legal Sex Male 12:15 AM DATA ANALYST Gender Identity Not on file Sexual Orientation Not on file documented as of this encounter Plan of Treatment Not on file documented as of this encounter Visit Diagnoses Not on filedocumented in this encounter Additional Health Concerns Infection Onset Date Last Indicated Resolved Time COVID: Suspected 04/25/2025 04/25/2025 04/25/2025 9:20 AM CDT documented as of this encounter Care Teams Tempering Kiln Tender Relationship Specialty Start Date End Date No, Physician PCP - General 03/04/25 05/02/25 [place] [address] [address] [facility] [address] [place] [address] PCP - General Family Medicine 06/03/25 Rubens Zuniga MD [address] [facility] [address] [place] [address] 03/31/18 Bassem Pena MD [address] [place] [address] Referring Physician Cardiology 02/17/25 Matilda Nicole [address] [address] [place] [address] [facility] Outpatient Header Dock 03/09/25 04/12/25 Elvis Navas DNP [id number] [address] [facility] [address] [place] [address] Nurse Practitioner Internal Medicine 03/15/25 04/12/25 Sarah Junior MSW Laborer/Grade Check 03/22/25 [place] [address] [address] [facility] [address] [place] [address] Consulting Physician Cardiology 04/13/25 [place] [address] [address] [facility] [address] [place] [address] Nurse Practitioner Cardiothoracic Surgery 04/13/25 documented as of this encounter
[2025-09-07 13:54] VITALS: BP 133/74; PULSE 82; RESP 14; O2SAT 95
== END 2025-09-07 15:00 | disposition home or self-care (01) ==
PROVIDERS: Emergency Provider Emergency Medicine
DX: R00.1 Bradycardia, unspecified (principal)
CPT/HCPCS: 36415; 71045; 80053; 83735; 84443; 85025; 85610; 85730; 93005; 99283; A9270